=== PATIENT | male | born 1945 | race Caucasian/White ===

== ENCOUNTER 2017-09-22 09:27 | Emergency (ER) | payer MEDICARE, BC ==
[2017-09-22] MEDS: ADACEL/BOOSTRIX VACCINE (DIPHTH/PERTUSS/ACELL/TETANUS)0.5ML SYR (90715) IM (09:56)
== END 2017-09-22 12:44 | disposition home or self-care (01) ==
LOC: M ED 09:27
DX: S50.01XA Contusion of right elbow, initial encounter (principal); S60.211A Contusion of right wrist, initial encounter; S80.01XA Contusion of right knee, initial encounter; S80.02XA Contusion of left knee, initial encounter; W01.0XXA Fall on same level from slipping, tripping and stumbling without subsequent striking against object, initial encounter; Y92.099 Unspecified place in other non-institutional residence as the place of occurrence of the external cause; Y93.9 Activity, unspecified; Y99.9 Unspecified external cause status; M10.9 Gout, unspecified; Z79.899 Other long term (current) drug therapy
CPT/HCPCS: 90715

== ENCOUNTER → 2017-10-12 | Outpatient (REF) | payer MEDICARE, BC ==
[2017-10-12 15:53] LABS: ANION GAP 9 MEQ/L (8-16); BLOOD UREA NITROGEN 19 MG/DL (7-18); CALCIUM LEVEL 9.2 MG/DL (8.8-10.2); CARBON DIOXIDE LEVEL 26 MEQ/L (21-32); CHLORIDE LEVEL 106 MEQ/L (98-107); CPK CREATINE PHOSPHOKINASE 108 U/L (39-308); CREATININE FOR GFR 0.95 MG/DL (0.70-1.30); GLOMERULAR FILTRATION RATE > 60.0 (>42); GLUCOSE, FASTING 204 MG/DL (70-100); POTASSIUM SERUM 4.1 MEQ/L (3.5-5.1); SODIUM LEVEL 141 MEQ/L (136-145)
== END ==
LOC: M SFHCPLAZ 12:59
DX: M62.81 Muscle weakness (generalized) (principal)
CPT/HCPCS: 82550

== ENCOUNTER → 2018-04-14 | Outpatient (REF) | payer MEDICARE, BC ==
[~2018-04-14] MED LIST: ATOR1TAB21; CLON0.5T8; DULO1CAP3; LISI-542; METF500T13 PO; METF500T4; OLAN10TA2; ZYLO300T6
[2018-04-14 12:21] LABS: ALBUMIN 4.3 GM/DL (3.2-5.2); ALT/SGPT 52 U/L (12-78); BILIRUBIN,TOTAL 0.7 MG/DL (0.2-1.0); BLOOD UREA NITROGEN 16 MG/DL (7-18); CALCIUM LEVEL 9.7 MG/DL (8.8-10.2); CARBON DIOXIDE LEVEL 24 MEQ/L (21-32); CHLORIDE LEVEL 105 MEQ/L (98-107); CHOLESTEROL LEVEL 128 MG/DL (<200); CHOLESTEROL RISK RATIO 4.923 (<5); CREATININE FOR GFR 0.93 MG/DL (0.70-1.30); GLOMERULAR FILTRATION RATE > 60.0 (>42); GLUCOSE, FASTING 183 MG/DL (70-100); HDL CHOLESTEROL 26 MG/DL (>40); LDL CHOLESTEROL 45 MG/DL (<100); NON-HDL-C 102 MG/DL; POTASSIUM SERUM 4.4 MEQ/L (3.5-5.1); SODIUM LEVEL 137 MEQ/L (136-145); TOTAL PROTEIN 7.5 GM/DL (6.4-8.2); TRIGLYCERIDES LEVEL 284 MG/DL (<150)
[2018-04-14 13:34] LABS: HEMOGLOBIN A1c 8.3 %
[2018-04-14 13:53] LABS: MALB URINE SIEMENS 22.9 MG/L
== END ==
LOC: M SFHCPLAZ 10:41
PROVIDERS: ATTEND Nurse Practitioner Adult Health
DX: E11.9 Type 2 diabetes mellitus without complications (principal)

== ENCOUNTER → 2018-10-14 | Outpatient (CLI) | payer MEDICARE, BC ==
[~2018-10-14] MED LIST changes: -DULO1CAP3; +DULO1CAP6
--- NOTE | 2018-10-14 14:19 | REP ---
Bilateral lower extremity arterial Doppler ultrasound: History: Atherosclerosis of the [place] lower extremity arteries. Claudication. Findings: Ankle brachial indices are normal measured at 1.07 on the right and 1.13 on the left. Mild plaquing is visible diffusely. Essentially normal arterial Doppler waveforms are seen. No focal significant stenosis seen. Right lower extremity arterial Doppler velocity chart: CF A 132 cm/S Profunda 192 Proximal SFA 155 Mid SFA 100 Distal SFA 97 Popliteal 86 Proximal AT A 68 Tibioperoneal trunk 107 By optimal INTERACTIVE ART DIRECTOR 85 Distal INTERACTIVE ART DIRECTOR 120 Distal AT A 84 Left lower extremity arterial Doppler velocity chart: CF A 133 cm/S Profunda 96 Proximal SFA 104 Mid SFA 84 Distal SFA 105 Popliteal 120 Proximal AT A 58 Tibioperoneal trunk 81 Proximal INTERACTIVE ART DIRECTOR 56 Distal INTERACTIVE ART DIRECTOR 89 Distal AT A 128 Electronically Signed by Brayan Caballero MD 10/14/2018 02:10 P
== END ==
LOC: M RAD 12:39
PROVIDERS: ATTEND Surgery Vascular Surgery
DX: I70.213 Atherosclerosis of native arteries of extremities with intermittent claudication, bilateral legs (principal)

== ENCOUNTER → 2018-12-27 | Outpatient (REF) | payer MEDICARE, BC ==
[~2018-12-27] MED LIST changes: +METF-791; -METF500T4
[2018-12-27 12:49] LABS: ALBUMIN 3.8 GM/DL (3.2-5.2); ALT/SGPT 34 U/L (12-78); BILIRUBIN,TOTAL 0.9 MG/DL (0.2-1.0); BLOOD UREA NITROGEN 15 MG/DL (7-18); CALCIUM LEVEL 9.4 MG/DL (8.8-10.2); CARBON DIOXIDE LEVEL 28 MEQ/L (21-32); CHLORIDE LEVEL 105 MEQ/L (98-107); CREATININE FOR GFR 1.08 MG/DL (0.70-1.30); GLOMERULAR FILTRATION RATE > 60.0 (>42); GLUCOSE, FASTING 247 MG/DL (70-100); POTASSIUM SERUM 4.1 MEQ/L (3.5-5.1); SODIUM LEVEL 140 MEQ/L (136-145); TOTAL PROTEIN 7.3 GM/DL (6.4-8.2)
[2018-12-27 13:18] LABS: HEMOGLOBIN A1c 7.3 %
== END ==
LOC: M SFHCPLAZ 09:28
PROVIDERS: ATTEND Nurse Practitioner Adult Health
DX: E11.9 Type 2 diabetes mellitus without complications (principal)
CPT/HCPCS: 36415; 80053; 83036; 90682; G0008; G0463

== ENCOUNTER → 2019-08-15 | Outpatient (REF) | payer MEDICARE, BC ==
[~2019-08-15] MED LIST changes: +CLON0.5T2; -CLON0.5T8; -LISI-542; +LISI-898; -METF-791; +METF-838
[2019-08-15 18:13] LABS: BLOOD UREA NITROGEN 23 MG/DL (7-18); CALCIUM LEVEL 9.4 MG/DL (8.8-10.2); CARBON DIOXIDE LEVEL 25 MEQ/L (21-32); CHLORIDE LEVEL 104 MEQ/L (98-107); CREATININE FOR GFR 1.03 MG/DL (0.70-1.30); GLOMERULAR FILTRATION RATE > 60.0 (>42); GLUCOSE, FASTING 249 MG/DL (70-100); POTASSIUM SERUM 4.2 MEQ/L (3.5-5.1); SODIUM LEVEL 138 MEQ/L (136-145)
== END ==
LOC: M SFHCPLAZ 14:31
PROVIDERS: ATTEND Family Medicine
DX: R60.9 Edema, unspecified (principal)
CPT/HCPCS: 36415; 80048; G0463

== ENCOUNTER → 2020-01-18 | Outpatient (REF) | payer MEDICARE, BC ==
[~2020-01-18] MED LIST changes: +LISI-542; -LISI-898
[2020-01-18 14:25] LABS: ALT/SGPT 44 U/L (12-78); BILIRUBIN,TOTAL 0.8 MG/DL (0.2-1.0); BLOOD UREA NITROGEN 22 MG/DL (7-18); CALCIUM LEVEL 9.3 MG/DL (8.8-10.2); CARBON DIOXIDE LEVEL 27 MEQ/L (21-32); CHLORIDE LEVEL 103 MEQ/L (98-107); CHOLESTEROL LEVEL 146 MG/DL (<200); CHOLESTEROL RISK RATIO 4.424 (<5); CREATININE FOR GFR 1.09 MG/DL (0.70-1.30); GLOMERULAR FILTRATION RATE > 60.0 (>42); GLUCOSE, FASTING 241 MG/DL (70-100); HDL CHOLESTEROL 33 MG/DL (>40); NON-HDL-C 113 MG/DL; POTASSIUM SERUM 4.9 MEQ/L (3.5-5.1); SODIUM LEVEL 135 MEQ/L (136-145); TOTAL PROTEIN 7.6 GM/DL (6.4-8.2); TRIGLYCERIDES LEVEL 400 MG/DL (<150)
[2020-01-18 14:30] LABS: CREATININE, URINE 91.8 MG/DL; HEMOGLOBIN A1c 8.2 %; MALB URINE SIEMENS 14.2 MG/L; MAU/CREAT RATIO 15.4 MCG/MG (0.0-30.0)
== END ==
LOC: M SFHCPLAZ 10:49
PROVIDERS: ATTEND Nurse Practitioner Adult Health
DX: E78.5 Hyperlipidemia, unspecified (principal); E11.9 Type 2 diabetes mellitus without complications

== ENCOUNTER → 2020-06-27 | Outpatient (CLI) | payer MEDICARE, BC ==
[~2020-06-27] MED LIST changes: -LISI-542; +LISI-898
--- NOTE | 2020-06-27 14:51 | REPPI ---
INDICATION: LUMBAR REGION. COMPARISON: None. TECHNIQUE: There are 6 views. FINDINGS: Vertebral body heights, interspacing and alignment are normal. There are small osteophytes anteriorly at every vertebral body compatible with mild multilevel degenerative disc disease. There is grade 1 retrolisthesis of L2 on L3, likely degenerative. There is no spondylolysis or spondylolisthesis. The pedicles and facets are unremarkable. The sacroiliac articulations are unremarkable. IMPRESSION: Mild multilevel degenerative disc disease. Degenerative grade 1 retrolisthesis of L2 on L3. If there are radicular symptoms consider MRI follow-up. <Electronically signed by Daniel Quesada > 06/27/20 [id number]
== END ==
LOC: M PLAIMG 14:20
PROVIDERS: ATTEND Nurse Practitioner Adult Health
DX: M51.36 Other intervertebral disc degeneration, lumbar region (principal); M25.78 Osteophyte, vertebrae; M54.5 Low back pain
CPT/HCPCS: 72110; G0463

== ENCOUNTER → 2020-07-17 | Outpatient (REF) | payer MEDICARE, BC ==
[2020-07-17 14:22] LABS: HEMOGLOBIN A1c 12.4 %
[2020-07-17 14:28] LABS: CREATININE, URINE 67.9 MG/DL; MALB URINE SIEMENS 62.4 MG/L; MAU/CREAT RATIO 91.8 MCG/MG (0.0-30.0)
[2020-07-17 14:37] LABS: ALT/SGPT 32 U/L (12-78); BLOOD UREA NITROGEN 9 MG/DL (7-18); CALCIUM LEVEL 9.3 MG/DL (8.8-10.2); CARBON DIOXIDE LEVEL 27 MEQ/L (21-32); CHLORIDE LEVEL 104 MEQ/L (98-107); CHOLESTEROL LEVEL 138 MG/DL (<200); CHOLESTEROL RISK RATIO 4.181 (<5); CREATININE FOR GFR 0.91 MG/DL (0.70-1.30); GLOMERULAR FILTRATION RATE > 60.0 (>42); GLUCOSE, FASTING 261 MG/DL (70-100); HDL CHOLESTEROL 33 MG/DL (>40); NON-HDL-C 105 MG/DL; POTASSIUM SERUM 4.6 MEQ/L (3.5-5.1); SODIUM LEVEL 138 MEQ/L (136-145); TRIGLYCERIDES LEVEL 332 MG/DL (<150)
[2020-07-17 14:38] LABS: ALBUMIN 3.8 GM/DL (3.2-5.2); LDL CHOLESTEROL 39 MG/DL (<100); TOTAL PROTEIN 7.3 GM/DL (6.4-8.2); URIC ACID 3.7 MG/DL (3.5-7.2)
== END ==
LOC: M SFHCPLAZ 11:24
PROVIDERS: ATTEND Nurse Practitioner Adult Health
DX: E78.5 Hyperlipidemia, unspecified (principal); E11.9 Type 2 diabetes mellitus without complications; M1A.0790 Idiopathic chronic gout, unspecified ankle and foot, without tophus (tophi)
CPT/HCPCS: 36415; 80053; 80061; 82043; 83036; 84550; G0463

== ENCOUNTER → 2020-08-03 | Outpatient (CLI) | payer MEDICARE, BC ==
--- NOTE | 2020-08-03 16:12 | REPVR ---
PROCEDURE INFORMATION: Exam: MR Lumbar Spine Without Contrast Exam date and time: 08/03/2020 2:32 PM Age: 75 years old Clinical indication: Low back pain; Additional info: Lumbar pain TECHNIQUE: Imaging protocol: Multiplanar magnetic resonance images of the lumbar spine without intravenous contrast. COMPARISON: CR SPINE LS COMPLETE 06/27/2020 2:43 PM FINDINGS: Vertebrae: Unremarkable. Spinal cord: Normal signal. No cord compression. L1-L2: No significant disc disease. No significant spinal canal stenosis. No neural foraminal stenosis. L2-L3: There is disc desiccation. There is facet arthropathy and ligamentum flavum hypertrophy. L3-L4: There is disc desiccation. There is mild disc bulging. There is facet arthropathy and ligamentum flavum hypertrophy. There is mild spinal canal stenosis. L4-L5: There is disc desiccation. There is mild disc bulging. Disc bulging extends into both neural foramen causing mild bilateral neural foraminal narrowing. There is facet arthropathy and ligamentum flavum hypertrophy. There is mild spinal canal stenosis. L5-S1: There is disc desiccation. There is a moderate disc bulge with a small superimposed central disc herniation. There is facet arthropathy and ligamentum flavum hypertrophy. Soft tissues: Unremarkable. IMPRESSION: Mild multilevel degenerative changes causing variable degrees of spinal canal and neuroforaminal narrowing as described above. Electronically signed by: Leo Cam On 08/03/2020 16:11:50 PM
== END ==
LOC: M RAD 14:28
PROVIDERS: ATTEND Nurse Practitioner Adult Health
DX: M54.5 Low back pain (principal)

== ENCOUNTER → 2020-09-18 | Outpatient (REF) | payer MEDICARE, BC ==
[~2020-09-18] MED LIST changes: -OLAN10TA2; +OLAN1TAB20
[2020-09-18 16:46] LABS: HEMOGLOBIN A1c 9.1 %
[2020-09-18 17:00] LABS: ALBUMIN 4.2 GM/DL (3.2-5.2); ALT/SGPT 37 U/L (12-78); BLOOD UREA NITROGEN 12 MG/DL (7-18); CALCIUM LEVEL 9.1 MG/DL (8.8-10.2); CARBON DIOXIDE LEVEL 28 MEQ/L (21-32); CHLORIDE LEVEL 103 MEQ/L (98-107); CREATININE FOR GFR 0.82 MG/DL (0.70-1.30); GLOMERULAR FILTRATION RATE > 60.0 (>42); GLUCOSE, FASTING 145 MG/DL (70-100); POTASSIUM SERUM 4.4 MEQ/L (3.5-5.1); SODIUM LEVEL 137 MEQ/L (136-145); TOTAL PROTEIN 7.6 GM/DL (6.4-8.2)
== END ==
LOC: M SFHCPLAZ 14:20
PROVIDERS: ATTEND Nurse Practitioner Adult Health
DX: E11.9 Type 2 diabetes mellitus without complications (principal)
CPT/HCPCS: 36415; 80053; 83036; G0463

== ENCOUNTER → 2020-12-19 | Outpatient (CLI) | payer MEDICARE, BC ==
[~2020-12-19] MED LIST changes: +E-Z-GAS II EFFERVESCENT PACKET (SODIUM BICARB./CITRIC ACID/SIMETHICONE) As Ordered ONE; +E-Z-HD 98% w/w 340GM SUSP BTL As Ordered ONE; +E-Z-PAQUE 96% w/w SUSP 176GM BTL As Ordered ONE
--- NOTE | 2020-12-19 16:31 | REP ---
INDICATION: R13.10 DYSPHAGIA. COMPARISON: None. TECHNIQUE: This procedure was performed under the direct supervision of Dr. Caballero. Images were reviewed with Dr. Caballero. Liquid barium and gas producing granules were given in the erect position as well as liquid barium in the prone oblique positions in order to perform a double contrast esophagram examination. A combination of fluoroscopy, spot films and last image hold technology was utilized. 0.7 minutes of fluoro time was utilized for this procedure. FINDINGS: A single view PA chest x-ray is submitted as a associate professor of physics film. The superior mediastinal structures are midline. The patient is status post median sternotomy. The right costophrenic angle is not visualized. The heart size is within normal limits. The visualized portion of the lungs are clear. The oral and pharyngeal stages of deglutition are unremarkable. During esophageal transport there are tertiary waves demonstrated. There is no esophagitis, stricture, mucosal ring, or hiatal hernia.Gastroesophageal reflux is not demonstrated on this examination. IMPRESSION: Tertiary waves. Otherwise, unremarkable double-contrast esophagram examination <Electronically signed by Saji Mcdonald > 12/19/20 1607 <Electronically signed by Anshu Caballero > 12/19/20 1620
== END ==
LOC: M RAD 10:41
PROVIDERS: ATTEND Physician Assistant Medical
DX: R13.10 Dysphagia, unspecified (principal)

== ENCOUNTER → 2020-12-23 | Outpatient (CLI) | payer MEDICARE, BC ==
[~2020-12-23] MED LIST changes: +BARIUM SULFATE 700 MG TABLET (E-Z-DISK) As Ordered ONE; -E-Z-GAS II EFFERVESCENT PACKET (SODIUM BICARB./CITRIC ACID/SIMETHICONE) As Ordered ONE; -E-Z-HD 98% w/w 340GM SUSP BTL As Ordered ONE; +VARIBAR NECTAR 40% w/v 240ML SUSP BTL As Ordered ONE; +VARIBAR PUDDING 40% w/v 230ML TUBE As Ordered ONE
--- NOTE | 2020-12-23 13:09 | REP ---
INDICATION: DYSPHAGIA. COMPARISON: None. TECHNIQUE: The procedure was performed by Odessa Lobo [facility], under the direct supervision of Dr. Caballero. The procedure was performed with Jane Crane from speech pathology present. 5 ml aliquots of thin, pudding, mixed fruit, soft food, hard food and pill consistency barium was administered. FINDINGS: Flash penetration was visualized with thin consistency barium. The detailed report of this examination will be provided by speech pathology. IMPRESSION: Flash penetration was visualized with thin consistency barium, a detailed report will be provided by speech pathology. 2.3 minutes of fluoroscopy time was utilized for this procedure. Some fluoroscopic images are performed with last image hold technology. These images require no additional radiation <Electronically signed by Odessa Lobo > 12/23/20 1245 <Electronically signed by Anshu Caballero > 12/23/20 [id number]
== END ==
LOC: M RAD 11:08
PROVIDERS: ATTEND Physician Assistant Medical
DX: R13.10 Dysphagia, unspecified (principal)

== ENCOUNTER → 2021-01-14 | Outpatient (CLI) | payer MEDICARE, BC ==
[~2021-01-14] MED LIST changes: -BARIUM SULFATE 700 MG TABLET (E-Z-DISK) As Ordered ONE; -E-Z-PAQUE 96% w/w SUSP 176GM BTL As Ordered ONE; -VARIBAR NECTAR 40% w/v 240ML SUSP BTL As Ordered ONE; -VARIBAR PUDDING 40% w/v 230ML TUBE As Ordered ONE
[2021-01-14 18:16] LABS: CREATININE, URINE 55.9 MG/DL; MAU/CREAT RATIO 17.8 MCG/MG (0.0-30.0)
[2021-01-14 18:18] LABS: ALBUMIN 3.8 GM/DL (3.2-5.2); ALT/SGPT 25 U/L (12-78); BILIRUBIN,TOTAL 0.9 MG/DL (0.2-1.0); BLOOD UREA NITROGEN 22 MG/DL (7-18); CALCIUM LEVEL 9.1 MG/DL (8.8-10.2); CARBON DIOXIDE LEVEL 27 MEQ/L (21-32); CHLORIDE LEVEL 105 MEQ/L (98-107); CHOLESTEROL LEVEL 111 MG/DL (<200); CHOLESTEROL RISK RATIO 3.964 (<5); CREATININE FOR GFR 0.97 MG/DL (0.70-1.30); GLOMERULAR FILTRATION RATE > 60.0 (>42); GLUCOSE, FASTING 141 MG/DL (70-100); HDL CHOLESTEROL 28 MG/DL (>40); LDL CHOLESTEROL 29 MG/DL (<100); NON-HDL-C 83 MG/DL; POTASSIUM SERUM 4.4 MEQ/L (3.5-5.1); SODIUM LEVEL 139 MEQ/L (136-145); TOTAL PROTEIN 7.3 GM/DL (6.4-8.2); TRIGLYCERIDES LEVEL 272 MG/DL (<150)
[2021-01-14 18:30] LABS: HEMOGLOBIN A1c 7.1 %
== END ==
LOC: M PLALAB 14:38
PROVIDERS: ATTEND Nurse Practitioner Adult Health
DX: E11.9 Type 2 diabetes mellitus without complications (principal)
CPT/HCPCS: 36415; 80053; 80061; 82043; 83036; G0463

== ENCOUNTER → 2021-05-14 | Outpatient (CLI) | payer MEDICARE, BC ==
[~2021-05-14] MED LIST changes: -LISI-898; +LISI5TAB11
[2021-05-14 17:36] LABS: HEMOGLOBIN A1c 8.3 %
[2021-05-14 17:41] LABS: ALBUMIN 4.3 GM/DL (3.2-5.2); ALT/SGPT 46 U/L (12-78); BILIRUBIN,TOTAL 0.8 MG/DL (0.2-1.0); BLOOD UREA NITROGEN 24 MG/DL (7-18); CARBON DIOXIDE LEVEL 26 MEQ/L (21-32); CHLORIDE LEVEL 103 MEQ/L (98-107); CHOLESTEROL LEVEL 157 MG/DL (<200); CHOLESTEROL RISK RATIO 5.064 (<5); GLOMERULAR FILTRATION RATE > 60.0 (>42); GLUCOSE, FASTING 185 MG/DL (70-100); HDL CHOLESTEROL 31 MG/DL (>40); MAGNESIUM LEVEL 2.1 MG/DL (1.8-2.4); NON-HDL-C 126 MG/DL; POTASSIUM SERUM 4.9 MEQ/L (3.5-5.1); SODIUM LEVEL 138 MEQ/L (136-145); TOTAL PROTEIN 7.7 GM/DL (6.4-8.2); TRIGLYCERIDES LEVEL 405 MG/DL (<150); URIC ACID 5.3 MG/DL (3.5-7.2)
== END ==
LOC: M PLALAB 14:54
PROVIDERS: ATTEND Nurse Practitioner Adult Health
DX: M1A.0790 Idiopathic chronic gout, unspecified ankle and foot, without tophus (tophi) (principal); E11.9 Type 2 diabetes mellitus without complications; M62.81 Muscle weakness (generalized)

== ENCOUNTER → 2021-05-21 | Outpatient (CLI) | payer MEDICARE, BC | LOC: M SOG 08:21 | PROVIDERS: ATTEND Orthopaedic Surgery Adult Reconstructive Orthopaedic Surgery | DX: M17.0 Bilateral primary osteoarthritis of knee (principal); M54.17 Radiculopathy, lumbosacral region; M51.37 Other intervertebral disc degeneration, lumbosacral region; M46.97 Unspecified inflammatory spondylopathy, lumbosacral region ==

== ENCOUNTER → 2021-06-11 | Outpatient (REF) | payer MEDICARE, BC ==
[2021-06-11 18:04] LABS: AMORPHOUS SEDIMENT SMALL (NEGATIVE); APPEARANCE, URINE HAZY (CLEAR); BACTERIA, URINE AUTO NEGATIVE (NEGATIVE); BILIRUBIN, URINE AUTO NEGATIVE (NEGATIVE); BLOOD, URINE BLOOD NEGATIVE (NEGATIVE); COLOR, URINE YELLOW (YELLOW); GLUCOSE, URINE (UA) AUTO 2+ mg/dL (NEGATIVE); KETONE, URINE AUTO TRACE mg/dL (NEGATIVE); LEUKOCYTE ESTERASE, URINE AUTO NEGATIVE (NEGATIVE); MUCUS, URINE SMALL (NEGATIVE); NITRITE, URINE AUTO NEGATIVE (NEGATIVE); PROTEIN, URINE AUTO NEGATIVE (NEGATIVE); RBC, URINE AUTO 0 /HPF (0-3); SPECIFIC GRAVITY URINE AUTO 1.019 (1.002-1.035); SQUAMOUS EPITHELIAL CELL UR AU 0 /HPF (0-6); UROBILINOGEN, URINE AUTO 0.2 mg/dL (0.0-2.0); WBC, URINE AUTO 1 /HPF (0-3)
== END ==
LOC: M SMT 16:56
PROVIDERS: ATTEND Urology
DX: N40.1 Benign prostatic hyperplasia with lower urinary tract symptoms (principal)

== ENCOUNTER → 2021-06-18 | Outpatient (CLI) | payer MEDICARE, BC ==
[2021-06-20 23:07] LABS: PSA TOTAL 0.6 ng/mL (0.0-4.0)
== END ==
LOC: M PLALAB 13:59 → M LAB 13:59
PROVIDERS: ATTEND Urology
DX: N40.1 Benign prostatic hyperplasia with lower urinary tract symptoms (principal)

== ENCOUNTER 2021-07-03 11:34 | Emergency (ER) | payer MEDICARE, BC ==
[~2021-07-03] VITALS: Ht 188 cm; Wt 105.5 kg
[2021-07-03] MEDS ORDERED: ALLO300T2 (11:48)
[2021-07-03] MEDS ORDERED: OLAN2.5T25 (11:48)
[2021-07-03] MEDS ORDERED: LISI10TA22 (11:48)
[2021-07-03] MEDS ORDERED: OXYB5TAB10 (11:48)
[2021-07-03] MEDS ORDERED: TAMS1CAP17 (11:48)
[2021-07-03] MEDS ORDERED: ATOR40TA75 (11:48)
[2021-07-03] MEDS ORDERED: FINA5TAB2 (11:48)
[2021-07-03] MEDS ORDERED: GABA-282 (11:48)
[2021-07-03 14:03] VITALS: BP 161/72
== END 2021-07-03 14:04 | disposition home or self-care (01) ==
LOC: M ED 11:34
DX: S80.11XA Contusion of right lower leg, initial encounter (principal); R22.41 Localized swelling, mass and lump, right lower limb; W01.0XXA Fall on same level from slipping, tripping and stumbling without subsequent striking against object, initial encounter; Y92.009 Unspecified place in unspecified non-institutional (private) residence as the place of occurrence of the external cause; Y93.9 Activity, unspecified; Y99.9 Unspecified external cause status; I25.10 Atherosclerotic heart disease of native coronary artery without angina pectoris; E11.9 Type 2 diabetes mellitus without complications; Z79.84 Long term (current) use of oral hypoglycemic drugs; Z79.899 Other long term (current) drug therapy

== ENCOUNTER → 2021-09-19 | Outpatient (CLI) | payer MEDICARE, BC ==
[~2021-09-19] MED LIST changes: +ALLO300T2; +ATOR40TA75; +FINA5TAB2; +GABA-282; +LISI10TA22; +OLAN2.5T25; +OXYB5TAB10; +TAMS1CAP17
[2021-09-19 15:55] LABS: HEMOGLOBIN A1c 7.2 %
[2021-09-19 16:13] LABS: ALBUMIN 4.1 GM/DL (3.2-5.2); ALT/SGPT 31 U/L (12-78); BILIRUBIN,TOTAL 0.9 MG/DL (0.2-1.0); BLOOD UREA NITROGEN 16 MG/DL (7-18); CARBON DIOXIDE LEVEL 26 MEQ/L (21-32); CHLORIDE LEVEL 110 MEQ/L (98-107); CREATININE FOR GFR 0.87 MG/DL (0.70-1.30); GLOMERULAR FILTRATION RATE > 60.0 (>42); GLUCOSE, FASTING 133 MG/DL (70-100); POTASSIUM SERUM 4.5 MEQ/L (3.5-5.1); SODIUM LEVEL 143 MEQ/L (136-145); TOTAL PROTEIN 7.4 GM/DL (6.4-8.2)
== END ==
LOC: M PLALAB 13:30
PROVIDERS: ATTEND Nurse Practitioner Adult Health
DX: E11.9 Type 2 diabetes mellitus without complications (principal)

== ENCOUNTER 2021-11-12 12:34 | Emergency (ER) | payer MEDICARE, BC ==
[~2021-11-12] VITALS: Ht 188 cm; Wt 102.4 kg
[2021-11-12 14:09] LABS: HEMATOCRIT 34.4 % (42.0-52.0); HEMOGLOBIN 10.9 g/dl (13.5-17.5); MEAN CORPUSCULAR HEMOGLOBIN 26.8 pg (27.0-33.0); MEAN CORPUSCULAR HGB CONC 31.7 g/dl (32.0-36.5); MEAN CORPUSCULAR VOLUME 84.5 fl (80.0-96.0); PLATELET COUNT, AUTOMATED 150 10^3/uL (150-450); RED BLOOD COUNT 4.07 10^6/uL (4.30-6.10); WHITE BLOOD COUNT 9.3 10^3/uL (4.0-10.0)
[2021-11-12 14:34] LABS: ATYPICAL LYMPH 4 % (0-5); BASOPHILS 2 % (0-1); LYMPHOCYTES 13 % (16-44); MONOCYTES 11 % (0-5); MYELOCYTES 2 % (0-0); NEUTROPHILS 67 % (28-66)
[2021-11-12 14:35] LABS: PLATELET ESTIMATE NORMAL (NORMAL)
[2021-11-12 14:36] LABS: HYPOCHROMASIA 1+; POIKILOCYTOSIS 1+; TEAR DROP CELLS 1+
[2021-11-12 14:41] LABS: ALBUMIN 4.2 GM/DL (3.2-5.2); ALT/SGPT 31 U/L (12-78); BILIRUBIN,DIRECT 0.2 MG/DL (0.0-0.2); BILIRUBIN,TOTAL 1.1 MG/DL (0.2-1.0); BLOOD UREA NITROGEN 20 MG/DL (7-18); CALCIUM LEVEL 10.1 MG/DL (8.8-10.2); CARBON DIOXIDE LEVEL 22 MEQ/L (21-32); CHLORIDE LEVEL 107 MEQ/L (98-107); CREATININE FOR GFR 0.81 MG/DL (0.70-1.30); GLOMERULAR FILTRATION RATE > 60.0 (>42); GLUCOSE, FASTING 116 MG/DL (70-100); POTASSIUM SERUM 3.8 MEQ/L (3.5-5.1); SODIUM LEVEL 137 MEQ/L (136-145); TOTAL PROTEIN 7.7 GM/DL (6.4-8.2)
[2021-11-12 15:12] LABS: FREE T4 1.08 NG/DL (0.76-1.46); MAGNESIUM LEVEL 1.9 MG/DL (1.8-2.4)
[2021-11-12 16:16] VITALS: BP 168/84
== END 2021-11-12 16:18 | disposition home or self-care (01) ==
LOC: M ED 12:34
DX: I10 Essential (primary) hypertension (principal); I44.0 Atrioventricular block, first degree; R00.1 Bradycardia, unspecified; E11.9 Type 2 diabetes mellitus without complications; E78.5 Hyperlipidemia, unspecified; F41.9 Anxiety disorder, unspecified; F33.1 Major depressive disorder, recurrent, moderate; Z87.891 Personal history of nicotine dependence; Z79.811 Long term (current) use of aromatase inhibitors; Z79.899 Other long term (current) drug therapy; Z79.4 Long term (current) use of insulin
CPT/HCPCS: 36415; 70450; 71045; 80053; 82248; 83735; 84439; 84443; 85025; 90834; 93005; 99284; G0463

== ENCOUNTER → 2021-12-04 | Outpatient (REF) | payer MEDICARE, BC | LOC: M SFHCDERM 17:20 | PROVIDERS: ATTEND Nurse Practitioner Family | DX: C44.41 Basal cell carcinoma of skin of scalp and neck (principal) ==

== ENCOUNTER → 2022-03-04 | Outpatient (CLI) | payer MEDICARE, BC ==
[2022-03-04 14:34] LABS: MAGNESIUM LEVEL 1.6 MG/DL (1.8-2.4); URIC ACID 5.9 MG/DL (3.7-9.2)
[2022-03-04 14:37] LABS: ALKALINE PHOSPHATASE 122 U/L (46-116); ALT/SGPT 32 U/L (7.0-40); AST/SGOT 32 U/L (<34); BILIRUBIN,TOTAL 0.9 MG/DL (0.3-1.2); BLOOD UREA NITROGEN 26 MG/DL (9-23); CALCIUM LEVEL 9.5 MG/DL (8.3-10.6); CARBON DIOXIDE LEVEL 25 MMOL/L (20-31); CHLORIDE LEVEL 102 MMOL/L (98-107); CHOLESTEROL LEVEL 119 MG/DL (<200); CHOLESTEROL RISK RATIO 3.91 (<5); CREATININE FOR GFR 0.77 MG/DL (0.70-1.30); GLOMERULAR FILTRATION RATE > 60.0 (>42); GLUCOSE, FASTING 219 MG/DL (74-106); HDL CHOLESTEROL 30.4 MG/DL (>40); LDL CHOLESTEROL 29.6 MG/DL (<100); NON-HDL-C 89 MG/DL; POTASSIUM SERUM 4.3 MMOL/L (3.5-5.1); SODIUM LEVEL 137 MMOL/L (136-145); TOTAL PROTEIN 6.9 G/DL (5.7-8.2); TRIGLYCERIDES LEVEL 295 MG/DL (<150)
[2022-03-04 14:46] LABS: HEMOGLOBIN A1c 9.6 % (4.0-6.0)
== END ==
LOC: M PLALAB 09:49
PROVIDERS: ATTEND Nurse Practitioner Adult Health
DX: E11.9 Type 2 diabetes mellitus without complications (principal); M62.81 Muscle weakness (generalized); M1A.0790 Idiopathic chronic gout, unspecified ankle and foot, without tophus (tophi)

== ENCOUNTER → 2022-06-09 | Outpatient (CLI) | payer MEDICARE, BC, OTHER ==
[2022-06-09 15:51] LABS: HEMOGLOBIN A1c 9.6 % (4.0-6.0)
[2022-06-09 16:00] LABS: CREATININE, URINE 73.3 MG/DL; MAU/CREAT RATIO 129.6 MCG/MG (0.0-30.0)
[2022-06-09 16:02] LABS: URIC ACID 7.2 MG/DL (3.7-9.2)
[2022-06-09 16:09] LABS: ALBUMIN 4.3 G/DL (3.2-5.2); ALKALINE PHOSPHATASE 117 U/L (46-116); ALT/SGPT 30 U/L (7.0-40); AST/SGOT 34 U/L (<34); BLOOD UREA NITROGEN 29 MG/DL (9-23); CALCIUM LEVEL 9.6 MG/DL (8.3-10.6); CARBON DIOXIDE LEVEL 25 MMOL/L (20-31); CHLORIDE LEVEL 101 MMOL/L (98-107); CREATININE FOR GFR 0.78 MG/DL (0.70-1.30); GLOMERULAR FILTRATION RATE > 60.0 (>42); GLUCOSE, FASTING 229 MG/DL (74-106); POTASSIUM SERUM 4.2 MMOL/L (3.5-5.1); SODIUM LEVEL 137 MMOL/L (136-145); TOTAL PROTEIN 7.1 G/DL (5.7-8.2)
== END ==
LOC: M PLALAB 14:30
PROVIDERS: ATTEND Nurse Practitioner Adult Health
DX: M1A.0790 Idiopathic chronic gout, unspecified ankle and foot, without tophus (tophi) (principal); E11.9 Type 2 diabetes mellitus without complications; I10 Essential (primary) hypertension

== ENCOUNTER → 2022-06-17 | Outpatient (REF) | payer MEDICARE, BC, OTHER ==
[2022-06-17 16:02] LABS: APPEARANCE, URINE CLEAR (CLEAR); BACTERIA, URINE AUTO NEGATIVE (NEGATIVE); BILIRUBIN, URINE AUTO NEGATIVE (NEGATIVE); BLOOD, URINE BLOOD NEGATIVE (NEGATIVE); COLOR, URINE YELLOW (YELLOW); GLUCOSE, URINE (UA) AUTO 3+ mg/dL (NEGATIVE); KETONE, URINE AUTO NEGATIVE (NEGATIVE); LEUKOCYTE ESTERASE, URINE AUTO NEGATIVE (NEGATIVE); NITRITE, URINE AUTO NEGATIVE (NEGATIVE); PROTEIN, URINE AUTO NEGATIVE (NEGATIVE); RBC, URINE AUTO 0 /HPF (0-3); SPECIFIC GRAVITY URINE AUTO 1.009 (1.002-1.035); SQUAMOUS EPITHELIAL CELL UR AU 0 /HPF (0-6); UROBILINOGEN, URINE AUTO 0.2 mg/dL (0.0-2.0); WBC, URINE AUTO 0 /HPF (0-3)
== END ==
LOC: M SMT 13:19
PROVIDERS: ATTEND Urology
DX: R35.0 Frequency of micturition (principal)

== ENCOUNTER → 2022-08-11 | Outpatient (REF) | payer MEDICARE, BC | LOC: M SFHCDERM 18:08 | PROVIDERS: ATTEND Nurse Practitioner Family | DX: C44.619 Basal cell carcinoma of skin of left upper limb, including shoulder (principal); L57.0 Actinic keratosis ==

== ENCOUNTER → 2022-08-21 | Outpatient (CLI) | payer MEDICARE, BC | LOC: M SOG 07:55 | PROVIDERS: ATTEND Orthopaedic Surgery | DX: M17.0 Bilateral primary osteoarthritis of knee (principal) ==

== ENCOUNTER 2022-09-26 15:06 | Inpatient (IN) | payer MEDICARE, BC ==
[~2022-09-26] VITALS: Ht 188 cm; Wt 107.9 kg
[~2022-09-26 15:06] MED LIST changes: -ALLO300T2; +ALLO300T2 PO; -ATOR40TA75; +ATOR40TA75 PO; -CLON0.5T2; +CLON0.5T2 PO; -DULO1CAP6; +DULO1CAP6 PO; -FINA5TAB2; +FINA5TAB2 PO; -GABA-282; +GABA-282 PO; -OLAN2.5T25; +OLAN2.5T25 PO; -TAMS1CAP17; +TAMS1CAP17 PO
[2022-09-26] MEDS ORDERED: ONE-TAB PO (15:46)
[2022-09-26] MEDS ORDERED: LISI30TA4 PO (15:46)
[2022-09-26] MEDS ORDERED: MULT-90 PO (15:46)
[2022-09-26] MEDS ORDERED: CO Q10CA PO (15:46)
[2022-09-26] MEDS ORDERED: VANCOMYCIN HCL 2,000 MG in D5W 500 ML IV ONE (16:30)
[2022-09-26] MEDS ORDERED: PIPERACILLIN/TAZOBACTAM SOD 4.5 GM in D5W MINI-BAG PLUS 50 ML IV ONE (16:30)
[2022-09-26 16:44] LABS: HEMATOCRIT 28.1 % (42.0-52.0); HEMOGLOBIN 8.8 g/dl (13.5-17.5); MEAN CORPUSCULAR HEMOGLOBIN 26.8 pg (27.0-33.0); MEAN CORPUSCULAR HGB CONC 31.3 g/dl (32.0-36.5); MEAN CORPUSCULAR VOLUME 85.7 fl (80.0-96.0); PLATELET COUNT, AUTOMATED 116 10^3/uL (150-450); RED BLOOD COUNT 3.28 10^6/uL (4.30-6.10); WHITE BLOOD COUNT 25.9 10^3/uL (4.0-10.0)
[2022-09-26] MEDS: MORPHINE 2 MG/ML 1ML VIAL IV PRN ×3 (16:55→23:46)
[2022-09-26 16:58] LABS: INR 1.22; PROTHROMBIN TIME 15.7 SECONDS (12.5-14.5)
[2022-09-26] MEDS ORDERED: VANCOMYCIN HCL 1,000 MG, VIAL MATE ADAPTER 1 EACH in D5W 250 ML IV ONE ×6 (17:00)
[2022-09-26 17:03] LABS: LYMPHOCYTES 4 % (16-44); MONOCYTES 8 % (0-5); NEUTROPHILS 83 % (28-66); PLATELET ESTIMATE DECREASED (NORMAL)
[2022-09-26 17:07] LABS: ALBUMIN 3.5 G/DL (3.2-5.2); ALKALINE PHOSPHATASE 111 U/L (46-116); ALT/SGPT 25 U/L (7.0-40); AST/SGOT 20 U/L (<34); BILIRUBIN,DIRECT 0.6 MG/DL (<0.4); BILIRUBIN,TOTAL 1.6 MG/DL (0.3-1.2); BLOOD UREA NITROGEN 27 MG/DL (9-23); CALCIUM LEVEL 9.3 MG/DL (8.3-10.6); CARBON DIOXIDE LEVEL 22 MMOL/L (20-31); CHLORIDE LEVEL 104 MMOL/L (98-107); CK-MB VALUE MASS 3.1 NG/ML (<3.6); CPK CREATINE PHOSPHOKINASE 289 U/L (46-171); CREATININE FOR GFR 1.06 MG/DL (0.70-1.30); GLOMERULAR FILTRATION RATE > 60.0 (>42); GLUCOSE, FASTING 276 MG/DL (74-106); MB/CK RELATIVE INDEX 1.07 (< OR =4); POTASSIUM SERUM 3.8 MMOL/L (3.5-5.1); SODIUM LEVEL 137 MMOL/L (136-145); TOTAL PROTEIN 6.3 G/DL (5.7-8.2)
[2022-09-26 17:12] LABS: THYROXINE (T4) 10.3 UG/DL (4.5-10.9)
[2022-09-26 17:20] LABS: PROCALCITONIN 1.23 ng/ml
[2022-09-26] MEDS ORDERED: NS 2,000 ML in IV 1 EA IV ONE (17:25)
[2022-09-26] MEDS ORDERED: GLUCOSE 4GM CHEW TABLET PO PRN (18:40)
[2022-09-26] MEDS ORDERED: MOM 30ML SUSPENSION UDC PO PRN (18:40)
[2022-09-26] MEDS ORDERED: GLUCAGON INJ 1MG VIAL SC PRN (18:40)
[2022-09-26] MEDS ORDERED: DEXTROSE 50% 50ML SYRINGE IV PRN (18:40)
[2022-09-26] MEDS ORDERED: MAALOX 30 ML SUSP *UDC PO PRN (18:40)
[2022-09-26] MEDS ORDERED: VANCOMYCIN HCL 1,000 MG, VIAL MATE ADAPTER 1 EACH in D5W 250 ML IV SCH (18:45)
[2022-09-26] MEDS ORDERED: NS 1,200 ML in IV 1 EA IV ONE (18:50)
[2022-09-26] MEDS ORDERED: DICL1GEL3 TOP (18:52)
[2022-09-26] MEDS ORDERED: OLAN1TAB16 PO (18:52)
[2022-09-26] MEDS ORDERED: HOME MED LIST COMPLETE! XX SCH (18:55)
[2022-09-26] MEDS ORDERED: MORPHINE 2 MG/ML 1ML VIAL IV PRN (19:10)
[2022-09-26 19:42] LABS: IRON (FE) 5 UG/DL (65-175); PERCENT SATURATION 1.6 % (19.7-50.0); TOTAL IRON BINDING CAPACITY 314 UG/DL (250-425)
[2022-09-26 19:43] LABS: FERRITIN 41.9 NG/ML (10.5-307.3)
[2022-09-26 19:44] LABS: VITAMIN B12 LEVEL 318 PG/ML (211-911)
[2022-09-26 20:04] LABS: CK-MB VALUE MASS 2.4 NG/ML (<3.6)
[2022-09-26 20:06] LABS: MB/CK RELATIVE INDEX 0.88 (< OR =4)
[2022-09-26 20:26] VITALS: BP 144/63; TEMP 98.2; O2SAT 93
[2022-09-26] MEDS: GABAPENTIN 300 MG CAP PO SCH (20:59)
[2022-09-26] MEDS: INSULIN LISPRO (NovoLOG) PER UNIT SC SCH (21:00)
[2022-09-26] MEDS: DOCUSATE SODIUM 100MG CAPSULE PO SCH (21:00)
[2022-09-26] MEDS: ATORVASTATIN 20 MG TAB PO SCH (21:00)
[2022-09-26] MEDS: ACETAMINOPHEN TAB 650MG DOSE (2X325MG) PO PRN (21:10)
[2022-09-26 21:37] VITALS: BP 120/58
[2022-09-26] MEDS: OLANZapine 5 MG TAB PO SCH (21:46)
[2022-09-26] MEDS: NS 1,000 ML IV SCH (22:00)
[2022-09-26] MEDS: PIPERACILLIN/TAZOBACTAM SOD 3.375 GM in D5W MINI-BAG PLUS 50 ML IV SCH (23:43)
[2022-09-27] VITALS: BP 129/60; TEMP 98.5; O2SAT 95
[2022-09-27 04:00] VITALS: BP 139/60; TEMP 99.4; O2SAT 94
[2022-09-27] MEDS: MORPHINE 2 MG/ML 1ML VIAL IV PRN ×3 (04:11→20:11)
[2022-09-27] MEDS: PIPERACILLIN/TAZOBACTAM SOD 3.375 GM in D5W MINI-BAG PLUS 50 ML IV SCH ×4 (04:11→22:25)
[2022-09-27 05:10] LABS: HEMATOCRIT 26.3 % (42.0-52.0); HEMOGLOBIN 8.2 g/dl (13.5-17.5); MEAN CORPUSCULAR HEMOGLOBIN 26.8 pg (27.0-33.0); MEAN CORPUSCULAR HGB CONC 31.2 g/dl (32.0-36.5); MEAN CORPUSCULAR VOLUME 85.9 fl (80.0-96.0); PLATELET COUNT, AUTOMATED 110 10^3/uL (150-450); RED BLOOD COUNT 3.06 10^6/uL (4.30-6.10); WHITE BLOOD COUNT 19.5 10^3/uL (4.0-10.0)
[2022-09-27 05:33] LABS: BLOOD UREA NITROGEN 22 MG/DL (9-23); CALCIUM LEVEL 8.3 MG/DL (8.3-10.6); CARBON DIOXIDE LEVEL 22 MMOL/L (20-31); CHLORIDE LEVEL 108 MMOL/L (98-107); CREATININE FOR GFR 0.87 MG/DL (0.70-1.30); GLOMERULAR FILTRATION RATE > 60.0 (>42); GLUCOSE, FASTING 154 MG/DL (74-106); MAGNESIUM LEVEL 1.6 MG/DL (1.8-2.4); POTASSIUM SERUM 3.6 MMOL/L (3.5-5.1); SODIUM LEVEL 140 MMOL/L (136-145)
[2022-09-27 05:53] LABS: ATYPICAL LYMPH 1 % (0-5); EOSINOPHILS 2 % (0-3); LYMPHOCYTES 7 % (16-44); MONOCYTES 11 % (0-5); NEUTROPHILS 78 % (28-66)
[2022-09-27 05:54] LABS: PLATELET ESTIMATE DECREASED (NORMAL)
[2022-09-27] MEDS: NS 1,000 ML IV SCH (06:16)
[2022-09-27] MEDS: VANCOMYCIN HCL 750 MG, VIAL MATE ADAPTER 1 EACH in D5W 250 ML IV SCH ×2 (06:16→18:09)
[2022-09-27] MEDS: ACETAMINOPHEN TAB 650MG DOSE (2X325MG) PO PRN ×3 (06:24→17:30)
[2022-09-27] MEDS: MAG SULF 1GM/100ML (MAG RUN) 1 GM in IV 1 EA IV SCH ×2 (06:41→08:15)
[2022-09-27 07:29] LABS: ANTI-STREPTOLYSIN O QUANT 34.1 IU/ML (<195)
[2022-09-27 08:15] VITALS: BP 129/59; TEMP 98.4; O2SAT 93
[2022-09-27] MEDS: INSULIN LISPRO (NovoLOG) PER UNIT SC SCH ×4 (08:23→20:18)
[2022-09-27] MEDS: allopurinoL 300 MG TAB PO SCH (08:50)
[2022-09-27] MEDS: TAMSULOSIN 0.4 MG CAP PO SCH (08:50)
[2022-09-27] MEDS: DULoxetine 30MG CAPSULE (CYMBALTA) PO SCH (08:50)
[2022-09-27] MEDS: FINASTERIDE 5MG TAB PO SCH (08:50)
[2022-09-27] MEDS: MULTIVITAMINS/MINERALS THERAP 1 TAB PO SCH (08:50)
[2022-09-27] MEDS: clonazePAM 0.5 MG TAB PO SCH (08:50)
[2022-09-27] MEDS: OLANZapine 2.5MG TABLET PO SCH (08:50)
[2022-09-27] MEDS: ENOXAPARIN 40MG/0.4ML SYRINGE (J1650 PER 10MG) SC SCH (08:51)
[2022-09-27] MEDS: DOCUSATE SODIUM 100MG CAPSULE PO SCH ×2 (08:51→20:11)
[2022-09-27] MEDS: GABAPENTIN 300 MG CAP PO SCH ×4 (08:51→20:11)
[2022-09-27 11:24] VITALS: BP 150/68; TEMP 97.6; O2SAT 94
[2022-09-27] MEDS: FERROUS SULFATE 325MG TAB PO SCH ×2 (12:19→20:10)
[2022-09-27 15:35] VITALS: BP 137/60; TEMP 97.3; O2SAT 94
[2022-09-27] MEDS ORDERED: VANCOMYCIN HCL 500 MG in D5W MINI-BAG PLUS 100 ML IV ONE (19:00)
[2022-09-27 19:46] VITALS: BP 133/63; TEMP 98.3; O2SAT 95
[2022-09-27] MEDS: ATORVASTATIN 20 MG TAB PO SCH (20:11)
[2022-09-27] MEDS: OLANZapine 5 MG TAB PO SCH (20:11)
[2022-09-28 04:05] VITALS: BP 148/65; TEMP 97.9; O2SAT 93
[2022-09-28] MEDS: PIPERACILLIN/TAZOBACTAM SOD 3.375 GM in D5W MINI-BAG PLUS 50 ML IV SCH ×2 (04:13→11:16)
[2022-09-28] MEDS ORDERED: VANCOMYCIN HCL 750 MG, VIAL MATE ADAPTER 1 EACH in D5W 250 ML IV SCH (06:00)
[2022-09-28 06:40] LABS: HEMATOCRIT 26.4 % (42.0-52.0); HEMOGLOBIN 8.3 g/dl (13.5-17.5); MEAN CORPUSCULAR HGB CONC 31.4 g/dl (32.0-36.5); PLATELET COUNT, AUTOMATED 110 10^3/uL (150-450); RED BLOOD COUNT 3.07 10^6/uL (4.30-6.10); WHITE BLOOD COUNT 14.3 10^3/uL (4.0-10.0)
[2022-09-28] MEDS ORDERED: VANCOMYCIN HCL 500 MG in D5W MINI-BAG PLUS 100 ML IV SCH (07:00)
[2022-09-28 07:12] LABS: BLOOD UREA NITROGEN 16 MG/DL (9-23); CALCIUM LEVEL 7.9 MG/DL (8.3-10.6); CARBON DIOXIDE LEVEL 22 MMOL/L (20-31); CHLORIDE LEVEL 106 MMOL/L (98-107); GLOMERULAR FILTRATION RATE > 60.0 (>42); GLUCOSE, FASTING 234 MG/DL (74-106); MAGNESIUM LEVEL 1.9 MG/DL (1.8-2.4); POTASSIUM SERUM 3.7 MMOL/L (3.5-5.1); SODIUM LEVEL 136 MMOL/L (136-145)
[2022-09-28 07:18] LABS: ANISOCYTOSIS 1+; ATYPICAL LYMPH 6 % (0-5); EOSINOPHILS 1 % (0-3); HYPOCHROMASIA 1+; LYMPHOCYTES 12 % (16-44); METAMYELOCYTES 2 % (0-0); MONOCYTES 5 % (0-5); MYELOCYTES 3 % (0-0); NEUTROPHILS 71 % (28-66); PLATELET ESTIMATE NORMAL (NORMAL)
[2022-09-28 08:28] VITALS: BP 140/68; TEMP 97.7; O2SAT 95
[2022-09-28] MEDS: allopurinoL 300 MG TAB PO SCH (08:56)
[2022-09-28] MEDS: INSULIN LISPRO (NovoLOG) PER UNIT SC SCH ×4 (08:56→21:00)
[2022-09-28] MEDS: GABAPENTIN 300 MG CAP PO SCH ×4 (08:56→20:51)
[2022-09-28] MEDS: MULTIVITAMINS/MINERALS THERAP 1 TAB PO SCH (08:56)
[2022-09-28] MEDS: DOCUSATE SODIUM 100MG CAPSULE PO SCH ×2 (08:56→20:52)
[2022-09-28] MEDS: FINASTERIDE 5MG TAB PO SCH (08:57)
[2022-09-28] MEDS: DULoxetine 30MG CAPSULE (CYMBALTA) PO SCH (08:57)
[2022-09-28] MEDS: TAMSULOSIN 0.4 MG CAP PO SCH (08:57)
[2022-09-28] MEDS: clonazePAM 0.5 MG TAB PO SCH (08:58)
[2022-09-28] MEDS: FERROUS SULFATE 325MG TAB PO SCH ×2 (08:58→20:52)
[2022-09-28] MEDS: OLANZapine 2.5MG TABLET PO SCH (08:58)
[2022-09-28] MEDS: ENOXAPARIN 40MG/0.4ML SYRINGE (J1650 PER 10MG) SC SCH (09:00)
[2022-09-28] MEDS ORDERED: PREVNAR-20 VACCINE 0.5ML SYRINGE IM.IMMUN ONE (09:00)
[2022-09-28] MEDS ORDERED: FUROSEMIDE 20MG/2ML VIAL IV ONE (11:30)
[2022-09-28] MEDS: ACETAMINOPHEN TAB 650MG DOSE (2X325MG) PO PRN ×2 (13:13→17:17)
[2022-09-28 14:36] VITALS: BP 131/75; TEMP 98.4; O2SAT 94
[2022-09-28] MEDS: BACTRIM 160MG/800MG DS TAB PO SCH (20:52)
[2022-09-28] MEDS: OLANZapine 5 MG TAB PO SCH (20:52)
[2022-09-28] MEDS: ATORVASTATIN 20 MG TAB PO SCH (20:52)
[2022-09-28] MEDS: PERCOCET 5MG/325MG TAB PO PRN (20:53)
[2022-09-28] MEDS ORDERED: AUGMENTIN 875 MG TAB PO SCH (21:00)
[2022-09-28] MEDS ORDERED: DOXYCYCLINE HYCLATE 100MG TABLET PO SCH (21:00)
[2022-09-28 21:07] VITALS: BP 141/72; TEMP 97.1; O2SAT 95
[2022-09-29 05:37] LABS: HEMATOCRIT 27.2 % (42.0-52.0); HEMOGLOBIN 8.6 g/dl (13.5-17.5); MEAN CORPUSCULAR HEMOGLOBIN 26.9 pg (27.0-33.0); MEAN CORPUSCULAR HGB CONC 31.6 g/dl (32.0-36.5); PLATELET COUNT, AUTOMATED 125 10^3/uL (150-450); WHITE BLOOD COUNT 10.5 10^3/uL (4.0-10.0)
[2022-09-29 06:00] VITALS: BP 141/66; TEMP 97; O2SAT 97
[2022-09-29 06:00] LABS: BLOOD UREA NITROGEN 15 MG/DL (9-23); CALCIUM LEVEL 7.7 MG/DL (8.3-10.6); CARBON DIOXIDE LEVEL 24 MMOL/L (20-31); CHLORIDE LEVEL 106 MMOL/L (98-107); CREATININE FOR GFR 0.72 MG/DL (0.70-1.30); GLOMERULAR FILTRATION RATE > 60.0 (>42); GLUCOSE, FASTING 198 MG/DL (74-106); MAGNESIUM LEVEL 1.7 MG/DL (1.8-2.4); POTASSIUM SERUM 3.5 MMOL/L (3.5-5.1); SODIUM LEVEL 139 MMOL/L (136-145)
[2022-09-29 06:53] LABS: BASOPHILS 2 % (0-1); EOSINOPHILS 1 % (0-3); HYPOCHROMASIA 2+; LYMPHOCYTES 26 % (16-44); MONOCYTES 7 % (0-5); NEUTROPHILS 59 % (28-66); PLATELET ESTIMATE DECREASED (NORMAL)
[2022-09-29] MEDS: ACETAMINOPHEN TAB 650MG DOSE (2X325MG) PO PRN ×2 (08:17→16:03)
[2022-09-29] MEDS: DOCUSATE SODIUM 100MG CAPSULE PO SCH ×3 (08:17→20:25)
[2022-09-29] MEDS: OLANZapine 2.5MG TABLET PO SCH (08:18)
[2022-09-29] MEDS: DULoxetine 30MG CAPSULE (CYMBALTA) PO SCH (08:18)
[2022-09-29] MEDS: allopurinoL 300 MG TAB PO SCH (08:18)
[2022-09-29] MEDS: TAMSULOSIN 0.4 MG CAP PO SCH (08:18)
[2022-09-29] MEDS: GABAPENTIN 300 MG CAP PO SCH ×4 (08:18→20:25)
[2022-09-29] MEDS: FERROUS SULFATE 325MG TAB PO SCH ×2 (08:18→20:24)
[2022-09-29] MEDS: FINASTERIDE 5MG TAB PO SCH (08:18)
[2022-09-29] MEDS: MULTIVITAMINS/MINERALS THERAP 1 TAB PO SCH (08:18)
[2022-09-29] MEDS: clonazePAM 0.5 MG TAB PO SCH (08:18)
[2022-09-29] MEDS: BACTRIM 160MG/800MG DS TAB PO SCH ×2 (08:18→20:25)
[2022-09-29] MEDS: INSULIN LISPRO (NovoLOG) PER UNIT SC SCH ×4 (08:19→21:00)
[2022-09-29] MEDS: ENOXAPARIN 40MG/0.4ML SYRINGE (J1650 PER 10MG) SC SCH (08:19)
[2022-09-29] MEDS: MAG SULF 1GM/100ML (MAG RUN) 1 GM in IV 1 EA IV SCH ×2 (08:21→09:50)
[2022-09-29] MEDS: PERCOCET 5MG/325MG TAB PO PRN (12:34)
[2022-09-29 14:00] VITALS: BP 122/50; TEMP 97.5; O2SAT 94
[2022-09-29] MEDS: ATORVASTATIN 20 MG TAB PO SCH (20:24)
[2022-09-29] MEDS: OLANZapine 5 MG TAB PO SCH (20:24)
[2022-09-29 21:07] VITALS: BP 151/68; TEMP 98.1; O2SAT 96
[2022-09-30 05:40] LABS: HEMATOCRIT 29.3 % (42.0-52.0); HEMOGLOBIN 9.2 g/dl (13.5-17.5); MEAN CORPUSCULAR HEMOGLOBIN 26.6 pg (27.0-33.0); MEAN CORPUSCULAR HGB CONC 31.4 g/dl (32.0-36.5); MEAN CORPUSCULAR VOLUME 84.7 fl (80.0-96.0); PLATELET COUNT, AUTOMATED 167 10^3/uL (150-450); RED BLOOD COUNT 3.46 10^6/uL (4.30-6.10); WHITE BLOOD COUNT 11.9 10^3/uL (4.0-10.0)
[2022-09-30 06:06] LABS: BLOOD UREA NITROGEN 16 MG/DL (9-23); CALCIUM LEVEL 8.4 MG/DL (8.3-10.6); CARBON DIOXIDE LEVEL 23 MMOL/L (20-31); CHLORIDE LEVEL 105 MMOL/L (98-107); CREATININE FOR GFR 0.81 MG/DL (0.70-1.30); GLOMERULAR FILTRATION RATE > 60.0 (>42); GLUCOSE, FASTING 213 MG/DL (74-106); SODIUM LEVEL 138 MMOL/L (136-145)
[2022-09-30 06:14] VITALS: BP 153/68; TEMP 98.1; O2SAT 97
[2022-09-30] MEDS: PERCOCET 5MG/325MG TAB PO PRN (06:16)
[2022-09-30 07:27] LABS: ATYPICAL LYMPH 6 % (0-5); BASOPHILS 3 % (0-1); EOSINOPHILS 3 % (0-3); LYMPHOCYTES 15 % (16-44); MONOCYTES 10 % (0-5); NEUTROPHILS 63 % (28-66); PLATELET ESTIMATE NORMAL (NORMAL)
[2022-09-30 07:28] LABS: POLYCHROMASIA 1+
[2022-09-30] MEDS: ENOXAPARIN 40MG/0.4ML SYRINGE (J1650 PER 10MG) SC SCH (08:14)
[2022-09-30] MEDS: INSULIN LISPRO (NovoLOG) PER UNIT SC SCH (08:14)
[2022-09-30] MEDS: TAMSULOSIN 0.4 MG CAP PO SCH (08:14)
[2022-09-30] MEDS: clonazePAM 0.5 MG TAB PO SCH (08:15)
[2022-09-30] MEDS: MULTIVITAMINS/MINERALS THERAP 1 TAB PO SCH (08:15)
[2022-09-30] MEDS: BACTRIM 160MG/800MG DS TAB PO SCH (08:15)
[2022-09-30] MEDS: FERROUS SULFATE 325MG TAB PO SCH (08:15)
[2022-09-30] MEDS: GABAPENTIN 300 MG CAP PO SCH (08:15)
[2022-09-30] MEDS: DULoxetine 30MG CAPSULE (CYMBALTA) PO SCH (08:15)
[2022-09-30] MEDS: OLANZapine 2.5MG TABLET PO SCH (08:15)
[2022-09-30 08:16] VITALS: BP 154/65
[2022-09-30] MEDS: FINASTERIDE 5MG TAB PO SCH (08:16)
[2022-09-30] MEDS: allopurinoL 300 MG TAB PO SCH (08:16)
[2022-09-30] MEDS: DOCUSATE SODIUM 100MG CAPSULE PO SCH (08:16)
[2022-09-30 08:21] VITALS: BP 154/66
[2022-09-30] MEDS ORDERED: CEPH500T PO (10:10)
[2022-09-30] MEDS ORDERED: RISATAB3 PO (10:10)
== END 2022-09-30 11:25 | disposition home or self-care (01) | DRG 863 ==
LOC: M ED 15:06 → M ED INP 19:08 → ENRESERV 19:36 → M PCU 20:22 → M MSPAV 09-28 14:36
PROVIDERS: ADMIT Internal Medicine; ATTEND Internal Medicine
DX: T81.49XA Infection following a procedure, other surgical site, initial encounter (principal); E87.20 Acidosis, unspecified; L03.114 Cellulitis of left upper limb; I10 Essential (primary) hypertension; E11.40 Type 2 diabetes mellitus with diabetic neuropathy, unspecified; F32.A Depression, unspecified; D64.9 Anemia, unspecified; E78.5 Hyperlipidemia, unspecified; I25.10 Atherosclerotic heart disease of native coronary artery without angina pectoris; N40.0 Benign prostatic hyperplasia without lower urinary tract symptoms; R53.1 Weakness; M10.9 Gout, unspecified; E83.42 Hypomagnesemia; Z95.1 Presence of aortocoronary bypass graft; Z86.73 Personal history of transient ischemic attack (TIA), and cerebral infarction without residual deficits; B95.61 Methicillin susceptible Staphylococcus aureus infection as the cause of diseases classified elsewhere; Z85.828 Personal history of other malignant neoplasm of skin; Z79.899 Other long term (current) drug therapy; Z98.41 Cataract extraction status, right eye; Z98.42 Cataract extraction status, left eye; Z87.891 Personal history of nicotine dependence; D72.829 Elevated white blood cell count, unspecified; Y84.8 Other medical procedures as the cause of abnormal reaction of the patient, or of later complication, without mention of misadventure at the time of the procedure

== ENCOUNTER → 2022-10-12 | Outpatient (CLI) | payer MEDICARE, BC ==
[~2022-10-12] MED LIST changes: +CEPH500T PO; +CO Q10CA PO; +DICL1GEL3 TOP; +LISI30TA4 PO; +MULT-90 PO; +OLAN1TAB16 PO; +ONE-TAB PO; +RISATAB3 PO
[2022-10-12 15:59] LABS: HEMOGLOBIN A1c 10.3 % (4.0-6.0)
== END ==
LOC: M PLALAB 12:00
PROVIDERS: ATTEND Nurse Practitioner Adult Health
DX: E11.9 Type 2 diabetes mellitus without complications (principal)

== ENCOUNTER → 2022-11-12 | Outpatient (CLI) | payer MEDICARE, BC ==
[~2022-11-12] MED LIST changes: +DICL100G10 TOP; -DICL1GEL3 TOP
== END ==
LOC: M SOG 13:26
PROVIDERS: ATTEND Orthopaedic Surgery
DX: M17.0 Bilateral primary osteoarthritis of knee (principal); Z53.9 Procedure and treatment not carried out, unspecified reason

== ENCOUNTER → 2023-01-18 | Outpatient (CLI) | payer MEDICARE, BC ==
[~2023-01-18] MED LIST changes: -OXYB5TAB10; +OXYB5TAB11
[2023-01-19 01:54] LABS: ALKALINE PHOSPHATASE 112 U/L (46-116); ALT/SGPT 25 U/L (7.0-40); AST/SGOT 21 U/L (<34); BILIRUBIN,TOTAL 0.9 MG/DL (0.3-1.2); BLOOD UREA NITROGEN 20 MG/DL (9-23); CALCIUM LEVEL 9.7 MG/DL (8.3-10.6); CARBON DIOXIDE LEVEL 26 MMOL/L (20-31); CHLORIDE LEVEL 103 MMOL/L (98-107); CHOLESTEROL LEVEL 103 MG/DL (<200); CREATININE FOR GFR 0.82 MG/DL (0.70-1.30); GLOMERULAR FILTRATION RATE > 60.0 (>42); GLUCOSE, FASTING 78 MG/DL (74-106); HDL CHOLESTEROL 27.1 MG/DL (>40); LDL CHOLESTEROL 33.5 MG/DL (<100); MAGNESIUM LEVEL 1.8 MG/DL (1.8-2.4); NON-HDL-C 75.9 MG/DL; POTASSIUM SERUM 3.9 MMOL/L (3.5-5.1); SODIUM LEVEL 138 MMOL/L (136-145); TRIGLYCERIDES LEVEL 212 MG/DL (<150); VITAMIN B12 LEVEL 635 PG/ML (211-911)
== END ==
LOC: M PLALAB 11:06
PROVIDERS: ATTEND Nurse Practitioner Adult Health
DX: M62.81 Muscle weakness (generalized) (principal); I10 Essential (primary) hypertension; M1A.0790 Idiopathic chronic gout, unspecified ankle and foot, without tophus (tophi); E53.8 Deficiency of other specified B group vitamins; E11.22 Type 2 diabetes mellitus with diabetic chronic kidney disease; E78.5 Hyperlipidemia, unspecified

== ENCOUNTER → 2023-02-23 | Outpatient (CLI) | payer MEDICARE, BC ==
[~2023-02-23] MED LIST changes: +HYDR12.55; +JANU100T; +METF-838 PO
[2023-02-23 17:42] LABS: BASO % 0.4 % (0.0-1.0); EOS # 0.1 10^3/uL (0.0-0.5); HEMATOCRIT 30.3 % (42.0-52.0); HEMOGLOBIN 9.6 g/dl (13.5-17.5); LYMPH # 1.8 10^3/uL (1.5-5.0); LYMPH % 22.1 % (24.0-44.0); MEAN CORPUSCULAR HEMOGLOBIN 27.7 pg (27.0-33.0); MEAN CORPUSCULAR HGB CONC 31.7 g/dl (32.0-36.5); MEAN CORPUSCULAR VOLUME 87.6 fl (80.0-96.0); MONO % 19.7 % (2.0-8.0); NEUTROPHILS # 4.6 10^3/uL (1.5-8.5); NEUTROPHILS % 56.1 % (36.0-66.0); PLATELET COUNT, AUTOMATED 107 10^3/uL (150-450); RED BLOOD COUNT 3.46 10^6/uL (4.30-6.10); WHITE BLOOD COUNT 8.2 10^3/uL (4.0-10.0)
[2023-02-23 17:57] LABS: INR 1.12; PROTHROMBIN TIME 14.1 SECONDS (12.5-14.5)
[2023-02-23 18:08] LABS: ALBUMIN 4.1 G/DL (3.2-5.2); ALKALINE PHOSPHATASE 103 U/L (46-116); ALT/SGPT 21 U/L (7.0-40); AST/SGOT 11 U/L (<34); BLOOD UREA NITROGEN 23 MG/DL (9-23); CALCIUM LEVEL 9.3 MG/DL (8.3-10.6); CARBON DIOXIDE LEVEL 28 MMOL/L (20-31); CHLORIDE LEVEL 103 MMOL/L (98-107); CREATININE FOR GFR 0.79 MG/DL (0.70-1.30); FERRITIN 14.1 NG/ML (10.5-307.3); GLOMERULAR FILTRATION RATE > 60.0 (>42); GLUCOSE, FASTING 129 MG/DL (74-106); IRON (FE) 32 UG/DL (65-175); MAGNESIUM LEVEL 1.9 MG/DL (1.8-2.4); PERCENT SATURATION 8.9 % (19.7-50.0); POTASSIUM SERUM 4.2 MMOL/L (3.5-5.1); SODIUM LEVEL 140 MMOL/L (136-145); TOTAL IRON BINDING CAPACITY 359 UG/DL (250-425)
[2023-02-23 18:09] LABS: FOLATE > 24.0 NG/ML (>5.4)
[2023-02-23 18:10] LABS: MONO # 1.6 10^3/uL (0.0-0.8); VITAMIN B12 LEVEL 555 PG/ML (211-911)
== END ==
LOC: M PLALAB 16:05
PROVIDERS: ATTEND Physician Assistant
DX: R42 Dizziness and giddiness (principal); R53.83 Other fatigue; D64.9 Anemia, unspecified; R16.0 Hepatomegaly, not elsewhere classified; E83.40 Disorders of magnesium metabolism, unspecified

== ENCOUNTER → 2023-03-02 | Outpatient (CLI) | payer MEDICARE, BC ==
[~2023-03-02] VITALS: Ht 188 cm; Wt 105.0 kg
[~2023-03-02] MED LIST changes: +ALBUTEROL SULFATE 2.5MG/0.5ML INH NEB SOLN INH PRN; +EPINEPHrine INJ 1 MG/ML 1ML AMP IM PRN; +FERRIC CARBOXYMALTOSE INJ 750 MG in NS 250 ML (>50kg) IV ONE; +diphenhydrAMINE 50MG/ML VIAL IV PRN; +methylPREDNISolone 125MG 2ML VIAL IV PRN
[2023-03-02 13:00] VITALS: BP 144/65; O2SAT 99
[2023-03-02 14:29] VITALS: BP 137/63; O2SAT 99
== END ==
LOC: M INFU 12:49
PROVIDERS: ATTEND Physician Assistant
DX: D50.9 Iron deficiency anemia, unspecified (principal)
CPT/HCPCS: 96365; J1439

== ENCOUNTER 2023-03-09 12:20 | Outpatient (CLI) | payer MEDICARE, BC ==
[~2023-03-09] VITALS: Ht 188 cm; Wt 102.0 kg
[~2023-03-09 12:20] MED LIST changes: -FERRIC CARBOXYMALTOSE INJ 750 MG in NS 250 ML (>50kg) IV ONE
[2023-03-09 12:25] VITALS: BP 133/62; O2SAT 99
[2023-03-09] MEDS ORDERED: NS 1,000 ML IV SCH (12:30)
[2023-03-09] MEDS ORDERED: FERRIC CARBOXYMALTOSE INJ 750 MG in NS 250 ML (>50kg) IV ONE ×3 (12:30)
[2023-03-09 13:45] VITALS: BP 143/66; O2SAT 98
== END 2023-03-09 13:45 | disposition home or self-care (01) ==
LOC: M INFU 12:20
PROVIDERS: ATTEND Physician Assistant
DX: D50.9 Iron deficiency anemia, unspecified (principal)
CPT/HCPCS: 96365; J1439

== ENCOUNTER → 2023-04-15 | Outpatient (CLI) | payer MEDICARE, BC ==
[~2023-04-15] MED LIST changes: -ALBUTEROL SULFATE 2.5MG/0.5ML INH NEB SOLN INH PRN; -EPINEPHrine INJ 1 MG/ML 1ML AMP IM PRN; -diphenhydrAMINE 50MG/ML VIAL IV PRN; -methylPREDNISolone 125MG 2ML VIAL IV PRN
[2023-04-15 15:53] LABS: INR 1.13; PROTHROMBIN TIME 14.1 SECONDS (12.5-14.5)
[2023-04-16 07:05] LABS: TOTAL IRON BINDING CAPACITY 292 UG/DL (250-425)
[2023-04-16 07:06] LABS: ALBUMIN 4.2 G/DL (3.2-5.2); ALKALINE PHOSPHATASE 111 U/L (46-116); ALT/SGPT 32 U/L (7.0-40); AST/SGOT 17 U/L (<34); BILIRUBIN,DIRECT 0.3 MG/DL (<0.4); BILIRUBIN,TOTAL 0.9 MG/DL (0.3-1.2); IRON (FE) 79 UG/DL (65-175); PERCENT SATURATION 27.1 % (19.7-50.0); TOTAL PROTEIN 6.6 G/DL (5.7-8.2)
[2023-04-16 07:40] LABS: HEPATITIS B CORE ANTIBODY IGM NEGATIVE (NEGATIVE); HEPATITIS C VIRUS ABY INDEX 0.03 INDEX (<0.8)
== END ==
LOC: M PLALAB 12:40
PROVIDERS: ATTEND Internal Medicine Gastroenterology
DX: K74.60 Unspecified cirrhosis of liver (principal); D50.9 Iron deficiency anemia, unspecified; Z11.59 Encounter for screening for other viral diseases

== ENCOUNTER → 2023-04-15 | Outpatient (CLI) | payer MEDICARE, BC ==
[2023-04-15 15:38] LABS: HEMATOCRIT 32.5 % (42.0-52.0); HEMOGLOBIN 10.6 g/dl (13.5-17.5); MEAN CORPUSCULAR HEMOGLOBIN 28.6 pg (27.0-33.0); MEAN CORPUSCULAR HGB CONC 32.6 g/dl (32.0-36.5); MEAN CORPUSCULAR VOLUME 87.8 fl (80.0-96.0); PLATELET COUNT, AUTOMATED 114 10^3/uL (150-450); WHITE BLOOD COUNT 7.8 10^3/uL (4.0-10.0)
[2023-04-15 16:08] LABS: ALBUMIN 4.2 G/DL (3.2-5.2); ALKALINE PHOSPHATASE 116 U/L (46-116); ALT/SGPT 31 U/L (7.0-40); AST/SGOT 14 U/L (<34); BLOOD UREA NITROGEN 23 MG/DL (9-23); CALCIUM LEVEL 9.7 MG/DL (8.3-10.6); CARBON DIOXIDE LEVEL 25 MMOL/L (20-31); CHLORIDE LEVEL 104 MMOL/L (98-107); CREATININE FOR GFR 0.86 MG/DL (0.70-1.30); GLOMERULAR FILTRATION RATE > 60.0 (>42); GLUCOSE, FASTING 173 MG/DL (74-106); IRON (FE) 81 UG/DL (65-175); PERCENT SATURATION 26.1 % (19.7-50.0); POTASSIUM SERUM 4.4 MMOL/L (3.5-5.1); SODIUM LEVEL 135 MMOL/L (136-145); TOTAL IRON BINDING CAPACITY 310 UG/DL (250-425); TOTAL PROTEIN 6.9 G/DL (5.7-8.2)
[2023-04-15 16:10] LABS: FERRITIN 223.8 NG/ML (10.5-307.3)
[2023-04-15 16:14] LABS: HEMOGLOBIN A1c 7.8 % (4.0-6.0)
== END ==
LOC: M PLALAB 12:37
PROVIDERS: ATTEND Nurse Practitioner Adult Health
DX: E11.9 Type 2 diabetes mellitus without complications (principal); D50.9 Iron deficiency anemia, unspecified

== ENCOUNTER 2023-06-14 09:36 | Day surgery (SDC) | payer MEDICARE, BC ==
[~2023-06-14] VITALS: Ht 188 cm; Wt 105.0 kg
[2023-06-14] MEDS: NS 1,000 ML IV ONE (06:00)
[~2023-06-14 09:36] MED LIST changes: +HYDR12.55 PO; -OXYB5TAB11; +OXYB5TAB14; +ZYPR2.5T2 PO
[2023-06-14] MEDS ORDERED: propofoL 500 MG/50 ML VIAL As Ordered ONE (10:09)
[2023-06-14] MEDS ORDERED: LIDOCAINE 2% 100MG/5ML SDV (FOR ANES.) As Ordered ONE (10:10)
[2023-06-14] MEDS ORDERED: fentaNYL 100 MCG/2 ML INJECTION As Ordered ONE (10:13)
[2023-06-14 12:00] VITALS: TEMP 98
[2023-06-14 12:22] VITALS: BP 162/70; O2SAT 100
== END 2023-06-14 12:29 | disposition home or self-care (01) ==
LOC: M OPP 09:36
PROVIDERS: ATTEND Internal Medicine Gastroenterology
DX: K64.8 Other hemorrhoids (principal); K64.4 Residual hemorrhoidal skin tags; Q43.8 Other specified congenital malformations of intestine; D50.9 Iron deficiency anemia, unspecified; K29.70 Gastritis, unspecified, without bleeding; Z13.810 Encounter for screening for upper gastrointestinal disorder; Z87.891 Personal history of nicotine dependence; E11.9 Type 2 diabetes mellitus without complications; I25.10 Atherosclerotic heart disease of native coronary artery without angina pectoris; Z79.02 Long term (current) use of antithrombotics/antiplatelets; Z79.83 Long term (current) use of bisphosphonates; Z79.818 Long term (current) use of other agents affecting estrogen receptors and estrogen levels; Z79.84 Long term (current) use of oral hypoglycemic drugs; Z79.891 Long term (current) use of opiate analgesic; Z79.899 Other long term (current) drug therapy
CPT/HCPCS: 43239; 45378; 88305; J3010

== ENCOUNTER → 2023-08-03 | Outpatient (REF) | payer MEDICARE, BC ==
[2023-08-03 18:49] LABS: HEMATOCRIT 31.4 % (42.0-52.0); HEMOGLOBIN 10.4 g/dl (13.5-17.5); MEAN CORPUSCULAR HEMOGLOBIN 29.5 pg (27.0-33.0); MEAN CORPUSCULAR HGB CONC 33.1 g/dl (32.0-36.5); MEAN CORPUSCULAR VOLUME 89.2 fl (80.0-96.0); PLATELET COUNT, AUTOMATED 108 10^3/uL (150-450); RED BLOOD COUNT 3.52 10^6/uL (4.30-6.10)
[2023-08-03 18:54] LABS: HEMOGLOBIN A1c 7.4 % (4.0-6.0)
[2023-08-03 19:17] LABS: FERRITIN 127.6 NG/ML (10.5-307.3)
[2023-08-03 19:18] LABS: IRON (FE) 55 UG/DL (65-175); PERCENT SATURATION 19.6 % (19.7-50.0); TOTAL IRON BINDING CAPACITY 281 UG/DL (250-425)
[2023-08-03 19:19] LABS: ALBUMIN 3.9 G/DL (3.2-5.2); ALKALINE PHOSPHATASE 93 U/L (46-116); ALT/SGPT 30 U/L (7.0-40); AST/SGOT 19 U/L (<34); BILIRUBIN,TOTAL 0.9 MG/DL (0.3-1.2); BLOOD UREA NITROGEN 23 MG/DL (9-23); CALCIUM LEVEL 9.5 MG/DL (8.3-10.6); CARBON DIOXIDE LEVEL 24 MMOL/L (20-31); CHLORIDE LEVEL 106 MMOL/L (98-107); CHOLESTEROL LEVEL 121 MG/DL (<200); CHOLESTEROL RISK RATIO 4.33 (<5); GLOMERULAR FILTRATION RATE > 60.0 (>35); GLUCOSE, FASTING 113 MG/DL (74-106); HDL CHOLESTEROL 27.9 MG/DL (>40); LDL CHOLESTEROL 32.1 MG/DL (<100); MAGNESIUM LEVEL 1.6 MG/DL (1.8-2.4); NON-HDL-C 93.1 MG/DL; POTASSIUM SERUM 4.3 MMOL/L (3.5-5.1); SODIUM LEVEL 140 MMOL/L (136-145); TOTAL PROTEIN 6.8 G/DL (5.7-8.2); TRIGLYCERIDES LEVEL 305 MG/DL (<150)
== END ==
LOC: M LABDRAWP 17:14
PROVIDERS: ATTEND Nurse Practitioner Adult Health
DX: Z00.00 Encounter for general adult medical examination without abnormal findings (principal); E11.9 Type 2 diabetes mellitus without complications; D50.9 Iron deficiency anemia, unspecified; E83.40 Disorders of magnesium metabolism, unspecified; E78.5 Hyperlipidemia, unspecified

== ENCOUNTER → 2023-10-18 | Outpatient (CLI) | payer MEDICARE, BC ==
[2023-10-18 19:55] LABS: ALBUMIN 4.1 G/DL (3.2-5.2); ALKALINE PHOSPHATASE 106 U/L (46-116); ALT/SGPT 22 U/L (7.0-40); AST/SGOT < 8 U/L (<34); BILIRUBIN,TOTAL 0.9 MG/DL (0.3-1.2); BLOOD UREA NITROGEN 20 MG/DL (9-23); CALCIUM LEVEL 9.5 MG/DL (8.3-10.6); CARBON DIOXIDE LEVEL 26 MMOL/L (20-31); CHLORIDE LEVEL 106 MMOL/L (98-107); CHOLESTEROL LEVEL 115 MG/DL (<200); CHOLESTEROL RISK RATIO 4.71 (<5); GLOMERULAR FILTRATION RATE > 60.0 (>35); GLUCOSE, FASTING 175 MG/DL (74-106); HDL CHOLESTEROL 24.4 MG/DL (>40); MAGNESIUM LEVEL 1.6 MG/DL (1.8-2.4); NON-HDL-C 90.6 MG/DL; POTASSIUM SERUM 4.2 MMOL/L (3.5-5.1); SODIUM LEVEL 138 MMOL/L (136-145); TOTAL PROTEIN 6.8 G/DL (5.7-8.2); TRIGLYCERIDES LEVEL 405 MG/DL (<150)
== END ==
LOC: M PLALAB 16:06
PROVIDERS: ATTEND Internal Medicine Cardiovascular Disease
DX: E78.2 Mixed hyperlipidemia (principal); I11.9 Hypertensive heart disease without heart failure; I48.91 Unspecified atrial fibrillation; R06.02 Shortness of breath

== ENCOUNTER → 2023-11-08 | Outpatient (CLI) | payer MEDICARE, BC | LOC: M PLALAB 10:46 | PROVIDERS: ATTEND Nurse Practitioner Adult Health | DX: E11.9 Type 2 diabetes mellitus without complications (principal) ==

== ENCOUNTER → 2023-12-01 | Outpatient (CLI) | payer MEDICARE, BC ==
[2023-12-01 19:02] LABS: ALBUMIN 3.8 G/DL (3.2-5.2); ALKALINE PHOSPHATASE 78 U/L (46-116); ALT/SGPT 35 U/L (7.0-40); AST/SGOT 22 U/L (<34); BILIRUBIN,TOTAL 1.2 MG/DL (0.3-1.2); BLOOD UREA NITROGEN 19 MG/DL (9-23); CALCIUM LEVEL 9.3 MG/DL (8.3-10.6); CARBON DIOXIDE LEVEL 26 MMOL/L (20-31); CHLORIDE LEVEL 112 MMOL/L (98-107); CHOLESTEROL LEVEL 80 MG/DL (<200); CHOLESTEROL RISK RATIO 2.71 (<5); CREATININE FOR GFR 1.01 MG/DL (0.70-1.30); GLOMERULAR FILTRATION RATE > 60.0 (>35); GLUCOSE, FASTING 95 MG/DL (74-106); HDL CHOLESTEROL 29.5 MG/DL (>40); LDL CHOLESTEROL 24.9 MG/DL (<100); MAGNESIUM LEVEL 1.8 MG/DL (1.8-2.4); NON-HDL-C 50.5 MG/DL; POTASSIUM SERUM 3.5 MMOL/L (3.5-5.1); SODIUM LEVEL 145 MMOL/L (136-145); TOTAL PROTEIN 6.5 G/DL (5.7-8.2); TRIGLYCERIDES LEVEL 128 MG/DL (<150)
== END ==
LOC: M PLALAB 16:01
PROVIDERS: ATTEND Internal Medicine Cardiovascular Disease
DX: I25.118 Atherosclerotic heart disease of native coronary artery with other forms of angina pectoris (principal); E78.2 Mixed hyperlipidemia; E11.69 Type 2 diabetes mellitus with other specified complication

== ENCOUNTER → 2023-12-14 | Outpatient (CLI) | payer MEDICARE, BC ==
[2023-12-14 15:13] LABS: HEMATOCRIT 30.3 % (42.0-52.0); HEMOGLOBIN 9.7 g/dl (13.5-17.5); LYMPH % 23.1 % (24.0-44.0); MEAN CORPUSCULAR HEMOGLOBIN 28.7 pg (27.0-33.0); MEAN CORPUSCULAR VOLUME 89.6 fl (80.0-96.0); NEUTROPHILS % 53.4 % (36.0-66.0); PLATELET COUNT, AUTOMATED 101 10^3/uL (150-450); RED BLOOD COUNT 3.38 10^6/uL (4.30-6.10); WHITE BLOOD COUNT 9.1 10^3/uL (4.0-10.0)
[2023-12-14 15:14] LABS: BASO # 0.1 10^3/uL (0.0-0.2); BASO % 0.7 % (0.0-1.0); EOS # 0.2 10^3/uL (0.0-0.5); EOS % 1.9 % (0.0-3.0); LYMPH # 2.1 10^3/uL (1.5-5.0); MONO # 1.8 10^3/uL (0.0-0.8); MONO % 19.4 % (2.0-8.0); NEUTROPHILS # 4.9 10^3/uL (1.5-8.5)
[2023-12-14 15:52] LABS: BLOOD UREA NITROGEN 25 MG/DL (9-23); CALCIUM LEVEL 9.8 MG/DL (8.3-10.6); CARBON DIOXIDE LEVEL 24 MMOL/L (20-31); CHLORIDE LEVEL 109 MMOL/L (98-107); CREATININE FOR GFR 0.99 MG/DL (0.70-1.30); GLOMERULAR FILTRATION RATE > 60.0 (>35); GLUCOSE, FASTING 163 MG/DL (74-106); POTASSIUM SERUM 4.2 MMOL/L (3.5-5.1); SODIUM LEVEL 141 MMOL/L (136-145)
== END ==
LOC: M PLALAB 11:14
PROVIDERS: ATTEND Internal Medicine Cardiovascular Disease
DX: I48.0 Paroxysmal atrial fibrillation (principal)

== ENCOUNTER → 2024-01-07 | Outpatient (CLI) | payer MEDICARE, BC ==
[~2024-01-07] MED LIST changes: +GABA-1172 PO; -GABA-282 PO; -OLAN2.5T25 PO; +OLAN2.5T53 PO
[2024-01-07 18:16] LABS: HEMATOCRIT 27.8 % (42.0-52.0); MEAN CORPUSCULAR HEMOGLOBIN 28.7 pg (27.0-33.0); MEAN CORPUSCULAR HGB CONC 32.4 g/dl (32.0-36.5); MEAN CORPUSCULAR VOLUME 88.5 fl (80.0-96.0); RED BLOOD COUNT 3.14 10^6/uL (4.30-6.10); WHITE BLOOD COUNT 8.8 10^3/uL (4.0-10.0)
[2024-01-07 18:17] LABS: HEMATOCRIT 27.4 % (42.0-52.0)
[2024-01-07 18:44] LABS: HEMOGLOBIN A1c 8.6 % (4.0-6.0)
[2024-01-07 18:50] LABS: IRON (FE) 49 UG/DL (65-175); PERCENT SATURATION 17.8 % (19.7-50.0); TOTAL IRON BINDING CAPACITY 276 UG/DL (250-425)
[2024-01-07 18:51] LABS: ALBUMIN 3.9 G/DL (3.2-5.2); ALKALINE PHOSPHATASE 92 U/L (46-116); ALT/SGPT 27 U/L (7.0-40); AST/SGOT 10 U/L (<34); BILIRUBIN,TOTAL 0.9 MG/DL (0.3-1.2); BLOOD UREA NITROGEN 33 MG/DL (9-23); CALCIUM LEVEL 9.7 MG/DL (8.3-10.6); CARBON DIOXIDE LEVEL 24 MMOL/L (20-31); CHLORIDE LEVEL 109 MMOL/L (98-107); CREATININE FOR GFR 0.85 MG/DL (0.70-1.30); GLOMERULAR FILTRATION RATE > 60.0 (>35); GLUCOSE, FASTING 136 MG/DL (74-106); POTASSIUM SERUM 4.2 MMOL/L (3.5-5.1); SODIUM LEVEL 137 MMOL/L (136-145); TOTAL PROTEIN 6.7 G/DL (5.7-8.2)
[2024-01-07 18:54] LABS: FERRITIN 118.7 NG/ML (10.5-307.3)
[2024-01-07 19:44] LABS: PLATELET COUNT, AUTOMATED 88 10^3/uL (150-450)
[2024-01-07 19:49] LABS: ATYPICAL LYMPH 6 % (0-5); BASOPHILS 1 % (0-1); EOSINOPHILS 3 % (0-3); LYMPHOCYTES 32 % (16-44); MONOCYTES 8 % (0-5); NEUTROPHILS 49 % (28-66)
[2024-01-07 19:50] LABS: PLATELET ESTIMATE DECREASED (NORMAL)
[2024-01-07 19:51] LABS: POIKILOCYTOSIS 2+
[2024-01-07 19:52] LABS: OVALOCYTES 1+
== END ==
LOC: M PLALAB 15:58
PROVIDERS: ATTEND Nurse Practitioner Adult Health
DX: D64.9 Anemia, unspecified (principal); E11.9 Type 2 diabetes mellitus without complications

== ENCOUNTER → 2024-02-10 | Outpatient (CLI) | payer MEDICARE, BC ==
[2024-02-10 13:16] LABS: HEMOGLOBIN 10.6 g/dl (13.5-17.5); MEAN CORPUSCULAR HEMOGLOBIN 28.9 pg (27.0-33.0); MEAN CORPUSCULAR HGB CONC 33.1 g/dl (32.0-36.5); MEAN CORPUSCULAR VOLUME 87.2 fl (80.0-96.0); RED BLOOD COUNT 3.67 10^6/uL (4.30-6.10); WHITE BLOOD COUNT 8.2 10^3/uL (4.0-10.0)
[2024-02-10 14:29] LABS: PLATELET COUNT, AUTOMATED 97 10^3/uL (150-450)
[2024-02-10 14:32] LABS: EOSINOPHILS 1 % (0-3); LYMPHOCYTES 28 % (16-44); MONOCYTES 19 % (0-5); NEUTROPHILS 52 % (28-66); PLATELET ESTIMATE DECREASED (NORMAL)
== END ==
LOC: M PLALAB 11:50
PROVIDERS: ATTEND Nurse Practitioner Adult Health
DX: D50.9 Iron deficiency anemia, unspecified (principal); D69.6 Thrombocytopenia, unspecified; D46.A Refractory cytopenia with multilineage dysplasia

== ENCOUNTER → 2024-02-16 | Outpatient (CLI) | payer MEDICARE, BC ==
[2024-02-16 19:33] LABS: BASO # 0.1 10^3/uL (0.0-0.2); BASO % 0.8 % (0.0-1.0); EOS # 0.2 10^3/uL (0.0-0.5); EOS % 2.5 % (0.0-3.0); HEMATOCRIT 31.9 % (42.0-52.0); HEMOGLOBIN 10.4 g/dl (13.5-17.5); LYMPH # 2.9 10^3/uL (1.5-5.0); MEAN CORPUSCULAR HEMOGLOBIN 28.9 pg (27.0-33.0); MEAN CORPUSCULAR HGB CONC 32.6 g/dl (32.0-36.5); MEAN CORPUSCULAR VOLUME 88.6 fl (80.0-96.0); MONO # 1.7 10^3/uL (0.0-0.8); MONO % 17.8 % (2.0-8.0); NEUTROPHILS # 4.6 10^3/uL (1.5-8.5); NEUTROPHILS % 47.6 % (36.0-66.0); PLATELET COUNT, AUTOMATED 111 10^3/uL (150-450); WHITE BLOOD COUNT 9.7 10^3/uL (4.0-10.0)
== END ==
LOC: M PLALAB 16:30
PROVIDERS: ATTEND Internal Medicine Hematology
DX: D69.3 Immune thrombocytopenic purpura (principal)

== ENCOUNTER → 2024-04-03 | Outpatient (REF) | payer MEDICARE, BC ==
[2024-04-03 18:23] LABS: BASO # 0.1 10^3/uL (0.0-0.2); BASO % 0.6 % (0.0-1.0); EOS # 0.2 10^3/uL (0.0-0.5); EOS % 1.7 % (0.0-3.0); HEMATOCRIT 30.6 % (42.0-52.0); HEMOGLOBIN 9.9 g/dl (13.5-17.5); LYMPH # 2.1 10^3/uL (1.5-5.0); LYMPH % 23.8 % (24.0-44.0); MEAN CORPUSCULAR HGB CONC 32.4 g/dl (32.0-36.5); MEAN CORPUSCULAR VOLUME 86.4 fl (80.0-96.0); MONO # 1.9 10^3/uL (0.0-0.8); MONO % 22.2 % (2.0-8.0); NEUTROPHILS # 4.4 10^3/uL (1.5-8.5); NEUTROPHILS % 50.7 % (36.0-66.0); PLATELET COUNT, AUTOMATED 123 10^3/uL (150-450); RED BLOOD COUNT 3.54 10^6/uL (4.30-6.10); WHITE BLOOD COUNT 8.7 10^3/uL (4.0-10.0)
[2024-04-03 18:58] LABS: ALBUMIN 3.8 G/DL (3.2-5.2); ALKALINE PHOSPHATASE 88 U/L (40-129); ALT/SGPT 21 U/L (7.0-40); AST/SGOT 13 U/L (<34); BILIRUBIN,TOTAL 0.6 MG/DL (0.3-1.2); BLOOD UREA NITROGEN 24 MG/DL (9-23); CALCIUM LEVEL 9.7 MG/DL (8.3-10.6); CARBON DIOXIDE LEVEL 25 MMOL/L (20-31); CHLORIDE LEVEL 107 MMOL/L (98-107); CREATININE FOR GFR 1.01 MG/DL (0.70-1.30); GLOMERULAR FILTRATION RATE > 60.0 (>35); GLUCOSE, FASTING 107 MG/DL (74-106); MAGNESIUM LEVEL 1.9 MG/DL (1.8-2.4); POTASSIUM SERUM 4.7 MMOL/L (3.5-5.1); SODIUM LEVEL 141 MMOL/L (136-145)
[2024-04-03 19:23] LABS: HEMOGLOBIN A1c 9.3 % (4.0-6.0)
== END ==
LOC: M PLALAB 17:36
PROVIDERS: ATTEND Nurse Practitioner Adult Health
DX: E11.9 Type 2 diabetes mellitus without complications (principal); E83.40 Disorders of magnesium metabolism, unspecified; D69.3 Immune thrombocytopenic purpura

== ENCOUNTER 2024-04-24 16:32 | Observation (INO) | payer MEDICARE, BC ==
[~2024-04-24] VITALS: Ht 188 cm; Wt 94.3 kg
[~2024-04-24 16:32] MED LIST changes: +CARV3.12 PO; +CEFD300CAP PO; +DULO60CA35 PO; +FARX1TAB3 PO; +FERR32TA PO; +GNP250TA9 PO; +ISOS1TAB35 PO; +JANU100T PO; +METR-265 PO; +NIRM1TAB13 PO; +OMEP-173 PO; +ROSU40TA81 PO
[2024-04-24 17:46] LABS: HEMATOCRIT 27.5 % (42.0-52.0); HEMOGLOBIN 8.7 g/dl (13.5-17.5); MEAN CORPUSCULAR HEMOGLOBIN 27.2 pg (27.0-33.0); MEAN CORPUSCULAR HGB CONC 31.6 g/dl (32.0-36.5); MEAN CORPUSCULAR VOLUME 85.9 fl (80.0-96.0); PLATELET COUNT, AUTOMATED 101 10^3/uL (150-450); WHITE BLOOD COUNT 19.1 10^3/uL (4.0-10.0)
[2024-04-24 17:58] LABS: BASOPHILS 1 % (0-1); LYMPHOCYTES 13 % (16-44); MONOCYTES 13 % (0-5); NEUTROPHILS 73 % (28-66); PLATELET ESTIMATE DECREASED (NORMAL)
[2024-04-24 18:17] LABS: CK-MB VALUE MASS 1.5 NG/ML (<3.6)
[2024-04-24 18:20] LABS: ALBUMIN 3.5 G/DL (3.2-5.2); BILIRUBIN,DIRECT 0.3 MG/DL (<0.4); BILIRUBIN,TOTAL 0.7 MG/DL (0.3-1.2); CALCIUM LEVEL 8.6 MG/DL (8.3-10.6); CREATININE FOR GFR 1.41 MG/DL (0.70-1.30); GLOMERULAR FILTRATION RATE 51.5 (>35); MB/CK RELATIVE INDEX 3.84 (< OR =4); POTASSIUM SERUM 4.4 MMOL/L (3.5-5.1); TOTAL PROTEIN 6.4 G/DL (5.7-8.2)
[2024-04-24 18:22] LABS: THYROID STIMULATING HORMONE 1.685 uIU/ML (0.55-4.78)
[2024-04-24] MEDS: LIDOCAINE 2% 5ML JELLY UROJET TOP ONE (19:50)
[2024-04-24 20:31] LABS: KETONE, URINE AUTO RFX NEGATIVE (NEGATIVE); LEUKOCYTE ESTERASE UR AUTO RFX NEGATIVE (NEGATIVE); MUCUS, URINE RFX SMALL (NEGATIVE); NITRITE, URINE AUTO RFX NEGATIVE (NEGATIVE); RBC, URINE AUTO RFX 0 /HPF (0-3); SQUAM EPITHELIAL CELL UR AURFX 0 /HPF (0-6); WBC, URINE AUTO RFX 1 /HPF (0-3)
[2024-04-24] MEDS ORDERED: HOME MED LIST COMPLETE! XX SCH (21:40)
[2024-04-24] MEDS ORDERED: MAALOX 30 ML SUSP *UDC PO PRN (22:35)
[2024-04-24] MEDS: clonazePAM 0.5 MG TAB PO ONE (23:14)
[2024-04-24] MEDS: NS (Normal Saline) 0.9% 1,000 ML IV SCH (23:15)
[2024-04-24] MEDS: ACETAMINOPHEN 325 MG TAB PO PRN (23:15)
[2024-04-24 23:57] VITALS: BP 93/58; TEMP 97.9; O2SAT 100
[2024-04-25 03:47] VITALS: BP 135/64; TEMP 97.5; O2SAT 98
[2024-04-25] MEDS ORDERED: clonazePAM 0.5 MG TAB PO PRN (04:50)
[2024-04-25] MEDS: CARVedilol 3.125 MG TAB PO SCH (09:00)
[2024-04-25] MEDS: SITagliptin 50 MG TAB (JANUVIA) PO SCH (09:10)
[2024-04-25] MEDS: DOCUSATE SODIUM 100MG CAPSULE PO SCH (09:10)
[2024-04-25] MEDS: DAPAGLIFLOZIN PROPANEDIOL 10MG TABLET (FARXIGA) PO SCH (09:10)
[2024-04-25] MEDS: FINASTERIDE 5MG TAB PO SCH (09:10)
[2024-04-25] MEDS: FERROUS GLUCONATE 324 MG TAB PO SCH (09:10)
[2024-04-25] MEDS: OLANZapine 2.5MG TABLET PO SCH (09:10)
[2024-04-25] MEDS: OMEPRAZOLE 20MG CAP PO SCH (09:10)
[2024-04-25] MEDS: allopurinoL 300 MG TAB PO SCH (09:10)
[2024-04-25] MEDS: metFORMIN XR 500MG TAB *GLUCOPHAGE XR PO SCH (09:11)
[2024-04-25] MEDS: ENOXAPARIN 30MG/0.3ML SYRINGE (J1650 PER 10MG) SC SCH (09:12)
[2024-04-25 09:30] LABS: HEMATOCRIT 26.9 % (42.0-52.0); HEMOGLOBIN 8.8 g/dl (13.5-17.5); MEAN CORPUSCULAR HEMOGLOBIN 27.7 pg (27.0-33.0); MEAN CORPUSCULAR HGB CONC 32.7 g/dl (32.0-36.5); MEAN CORPUSCULAR VOLUME 84.6 fl (80.0-96.0); RED BLOOD COUNT 3.18 10^6/uL (4.30-6.10); WHITE BLOOD COUNT 10.1 10^3/uL (4.0-10.0)
[2024-04-25 10:05] LABS: ALBUMIN 3.1 G/DL (3.2-5.2); ALKALINE PHOSPHATASE 76 U/L (40-129); ALT/SGPT 20 U/L (7.0-40); AST/SGOT 11 U/L (<34); BILIRUBIN,TOTAL 0.7 MG/DL (0.3-1.2); BLOOD UREA NITROGEN 23 MG/DL (9-23); CALCIUM LEVEL 8.3 MG/DL (8.3-10.6); CARBON DIOXIDE LEVEL 24 MMOL/L (20-31); CHLORIDE LEVEL 108 MMOL/L (98-107); CREATININE FOR GFR 1.07 MG/DL (0.70-1.30); GLOMERULAR FILTRATION RATE > 60.0 (>35); GLUCOSE, FASTING 111 MG/DL (74-106); POTASSIUM SERUM 4.4 MMOL/L (3.5-5.1); SODIUM LEVEL 140 MMOL/L (136-145); TOTAL PROTEIN 5.9 G/DL (5.7-8.2)
[2024-04-25 10:38] LABS: PLATELET COUNT, AUTOMATED 87 10^3/uL (150-450)
[2024-04-25 12:00] VITALS: BP 125/50; TEMP 97.5; O2SAT 100
[2024-04-25 12:27] LABS: PROCALCITONIN 0.19 ng/ml
[2024-04-25] MEDS: ROSUVASTATIN 10 MG TAB (CRESTOR) PO SCH (17:21)
[2024-04-25 19:25] VITALS: BP 121/48; TEMP 97.5; O2SAT 98
[2024-04-25] MEDS: OLANZapine 5 MG TAB PO SCH (20:17)
[2024-04-25] MEDS: clonazePAM 0.5 MG TAB PO SCH (20:17)
[2024-04-25] MEDS: TAMSULOSIN 0.4 MG CAP PO SCH (20:17)
[2024-04-26 04:10] VITALS: BP 124/52; TEMP 97.5; O2SAT 95
[2024-04-26 08:25] LABS: BASO # 0.1 10^3/uL (0.0-0.2); BASO % 0.5 % (0.0-1.0); EOS # 0.2 10^3/uL (0.0-0.5); EOS % 1.9 % (0.0-3.0); HEMOGLOBIN 9.2 g/dl (13.5-17.5); MEAN CORPUSCULAR HEMOGLOBIN 27.2 pg (27.0-33.0); MEAN CORPUSCULAR HGB CONC 31.7 g/dl (32.0-36.5); MEAN CORPUSCULAR VOLUME 85.8 fl (80.0-96.0); MONO % 28.5 % (2.0-8.0); NEUTROPHILS # 4.2 10^3/uL (1.5-8.5); NEUTROPHILS % 44.9 % (36.0-66.0); RED BLOOD COUNT 3.38 10^6/uL (4.30-6.10); WHITE BLOOD COUNT 9.4 10^3/uL (4.0-10.0)
[2024-04-26 08:27] LABS: MONO # 2.7 10^3/uL (0.0-0.8); PLATELET COUNT, AUTOMATED 97 10^3/uL (150-450)
[2024-04-26 08:33] VITALS: BP 151/56
[2024-04-26 08:52] LABS: BLOOD UREA NITROGEN 20 MG/DL (9-23); CARBON DIOXIDE LEVEL 21 MMOL/L (20-31); CHLORIDE LEVEL 105 MMOL/L (98-107); CREATININE FOR GFR 0.96 MG/DL (0.70-1.30); GLOMERULAR FILTRATION RATE > 60.0 (>35); GLUCOSE, FASTING 183 MG/DL (74-106); POTASSIUM SERUM 4.7 MMOL/L (3.5-5.1); SODIUM LEVEL 142 MMOL/L (136-145)
[2024-04-26 12:00] VITALS: BP 113/52; TEMP 97.7; O2SAT 98
== END 2024-04-26 12:55 | disposition home or self-care (01) ==
LOC: M ED 16:32 → M ED INP 16:33 → M MS5PR 23:57
PROVIDERS: ADMIT Student in an Organized Health Care Education/Training Program; ATTEND Internal Medicine
DX: R53.1 Weakness (principal); N17.9 Acute kidney failure, unspecified; N40.1 Benign prostatic hyperplasia with lower urinary tract symptoms; D72.829 Elevated white blood cell count, unspecified; D64.9 Anemia, unspecified; D69.6 Thrombocytopenia, unspecified; F41.9 Anxiety disorder, unspecified; F39 Unspecified mood [affective] disorder; E78.5 Hyperlipidemia, unspecified; K21.9 Gastro-esophageal reflux disease without esophagitis; E11.9 Type 2 diabetes mellitus without complications; I10 Essential (primary) hypertension; M10.9 Gout, unspecified; Z79.84 Long term (current) use of oral hypoglycemic drugs; Z79.899 Other long term (current) drug therapy
CPT/HCPCS: 36415; 51701; 71046; 76775; 76857; 80048; 80053; 80076; 81001; 82550; 82553; 84145; 84443; 84484; 85025; 85027; 85049; 85055; 86850; 86900; 86901; 87426; 87486; 87581; 87633; 87798; 93005; 96374; 97161; 99285; G0378; G0463; J1650

== ENCOUNTER → 2024-05-02 | Outpatient (CLI) | payer MEDICARE, BC ==
[~2024-05-02] MED LIST changes: +LIDOCAINE 1% MDV 20ML VIAL As Ordered ONE
[2024-05-02 08:20] VITALS: TEMP 97.1
[2024-05-02 09:21] LABS: HEMATOCRIT 29.8 % (42.0-52.0); HEMOGLOBIN 9.7 g/dl (13.5-17.5); MEAN CORPUSCULAR HEMOGLOBIN 28.1 pg (27.0-33.0); MEAN CORPUSCULAR HGB CONC 32.6 g/dl (32.0-36.5); MEAN CORPUSCULAR VOLUME 86.4 fl (80.0-96.0); PLATELET COUNT, AUTOMATED 146 10^3/uL (150-450); RED BLOOD COUNT 3.45 10^6/uL (4.30-6.10); WHITE BLOOD COUNT 15.2 10^3/uL (4.0-10.0)
[2024-05-02 09:35] VITALS: BP 121/57; O2SAT 98
[2024-05-02 09:37] LABS: ATYPICAL LYMPH 2 % (0-5); LYMPHOCYTES 24 % (16-44); METAMYELOCYTES 2 % (0-0); MONOCYTES 13 % (0-5); MYELOCYTES 3 % (0-0); NEUTROPHILS 56 % (28-66); PLATELET CLUMPS SMALL AMT; PLATELET ESTIMATE NORMAL (NORMAL)
[2024-05-02 09:38] LABS: ANISOCYTOSIS 1+; POIKILOCYTOSIS 1+; POLYCHROMASIA 1+
== END ==
LOC: M IRPRO 08:11
PROVIDERS: ATTEND Nurse Practitioner Adult Health
DX: D69.6 Thrombocytopenia, unspecified (principal); D72.821 Monocytosis (symptomatic)

== ENCOUNTER 2024-06-08 10:24 | Emergency (ER) | payer MEDICARE, BC ==
[~2024-06-08] VITALS: Ht 188 cm; Wt 91.7 kg
[~2024-06-08 10:24] MED LIST changes: -LIDOCAINE 1% MDV 20ML VIAL As Ordered ONE
[2024-06-08] MEDS: NS (Normal Saline) 0.9% 1,000 ML IV ONE (10:57)
[2024-06-08 11:03] LABS: HEMATOCRIT 30.2 % (42.0-52.0); HEMOGLOBIN 9.4 g/dl (13.5-17.5); MEAN CORPUSCULAR HEMOGLOBIN 27.5 pg (27.0-33.0); MEAN CORPUSCULAR HGB CONC 31.1 g/dl (32.0-36.5); MEAN CORPUSCULAR VOLUME 88.3 fl (80.0-96.0); PLATELET COUNT, AUTOMATED 108 10^3/uL (150-450); RED BLOOD COUNT 3.42 10^6/uL (4.30-6.10)
[2024-06-08 11:33] LABS: ALBUMIN 3.9 G/DL (3.2-5.2); ALKALINE PHOSPHATASE 91 U/L (40-129); ALT/SGPT 32 U/L (7.0-40); AST/SGOT 14 U/L (<34); BILIRUBIN,TOTAL 0.9 MG/DL (0.3-1.2); BLOOD UREA NITROGEN 25 MG/DL (9-23); CALCIUM LEVEL 9.3 MG/DL (8.3-10.6); CARBON DIOXIDE LEVEL 26 MMOL/L (20-31); CHLORIDE LEVEL 109 MMOL/L (98-107); CREATININE FOR GFR 0.98 MG/DL (0.70-1.30); GLOMERULAR FILTRATION RATE > 60.0 (>35); GLUCOSE, FASTING 99 MG/DL (74-106); MAGNESIUM LEVEL 1.9 MG/DL (1.8-2.4); POTASSIUM SERUM 4.2 MMOL/L (3.5-5.1); SODIUM LEVEL 145 MMOL/L (136-145); TOTAL PROTEIN 6.6 G/DL (5.7-8.2)
[2024-06-08 11:54] LABS: ATYPICAL LYMPH 3 % (0-5); EOSINOPHILS 3 % (0-3); LYMPHOCYTES 15 % (16-44); MONOCYTES 15 % (0-5); NEUTROPHILS 64 % (28-66)
[2024-06-08 11:55] LABS: PLATELET ESTIMATE DECREASED (NORMAL)
[2024-06-08 11:56] LABS: ANISOCYTOSIS 1+
[2024-06-08] MEDS: ACETAMINOPHEN 500 MG TAB PO ONE (12:04)
[2024-06-08 14:20] VITALS: BP 141/63; TEMP 97.3; O2SAT 100
== END 2024-06-08 14:25 | disposition home or self-care (01) ==
LOC: EDBD 10:24 → M ED 10:24
DX: E86.0 Dehydration (principal); R19.7 Diarrhea, unspecified; R00.1 Bradycardia, unspecified; I10 Essential (primary) hypertension; E78.5 Hyperlipidemia, unspecified; E11.9 Type 2 diabetes mellitus without complications; F41.9 Anxiety disorder, unspecified; F32.A Depression, unspecified; Z79.899 Other long term (current) drug therapy; Z79.4 Long term (current) use of insulin; Z79.811 Long term (current) use of aromatase inhibitors; Z86.79 Personal history of other diseases of the circulatory system; Z87.891 Personal history of nicotine dependence

== ENCOUNTER → 2024-07-26 | Outpatient (REF) | payer MEDICARE, BC ==
[2024-07-26 14:26] LABS: HEMATOCRIT 29.9 % (42.0-52.0); HEMOGLOBIN 9.5 g/dl (13.5-17.5); MEAN CORPUSCULAR HEMOGLOBIN 28.2 pg (27.0-33.0); MEAN CORPUSCULAR HGB CONC 31.8 g/dl (32.0-36.5); MEAN CORPUSCULAR VOLUME 88.7 fl (80.0-96.0); RED BLOOD COUNT 3.37 10^6/uL (4.30-6.10); WHITE BLOOD COUNT 5.2 10^3/uL (4.0-10.0)
[2024-07-26 14:33] LABS: PLATELET COUNT, AUTOMATED 75 10^3/uL (150-450)
[2024-07-26 14:48] LABS: ALBUMIN 3.9 G/DL (3.2-5.2); BILIRUBIN,TOTAL 1.2 MG/DL (0.3-1.2); CALCIUM LEVEL 9.3 MG/DL (8.3-10.6); CREATININE FOR GFR 1.02 MG/DL (0.70-1.30); FERRITIN 81.7 NG/ML (10.5-307.3); GLOMERULAR FILTRATION RATE 73.8 (>35); POTASSIUM SERUM 4.7 MMOL/L (3.5-5.1); TOTAL PROTEIN 6.4 G/DL (5.7-8.2)
[2024-07-26 14:59] LABS: ATYPICAL LYMPH 1 % (0-5); BASOPHILS 1 % (0-1); LYMPHOCYTES 28 % (16-44); MONOCYTES 19 % (0-5); NEUTROPHILS 50 % (28-66)
[2024-07-26 15:00] LABS: PLATELET ESTIMATE DECREASED (NORMAL)
== END ==
LOC: M SFHCPLAZ 10:55
PROVIDERS: ATTEND Physician Assistant Medical
DX: D50.9 Iron deficiency anemia, unspecified (principal); R19.7 Diarrhea, unspecified

== ENCOUNTER → 2024-08-01 | Outpatient (REF) | payer MEDICARE, BC | LOC: M SFHCPLAZ 09:59 | PROVIDERS: ATTEND Physician Assistant Medical | DX: D50.9 Iron deficiency anemia, unspecified (principal); R19.7 Diarrhea, unspecified; R42 Dizziness and giddiness; R68.2 Dry mouth, unspecified; R26.89 Other abnormalities of gait and mobility ==

== ENCOUNTER → 2024-08-28 | Outpatient (CLI) | payer MEDICARE, BC ==
[2024-08-28 14:12] LABS: HEMOGLOBIN A1c 8.8 % (4.0-6.0)
[2024-08-28 14:25] LABS: ALBUMIN 4.1 G/DL (3.2-5.2); BILIRUBIN,TOTAL 1.1 MG/DL (0.3-1.2); CALCIUM LEVEL 9.8 MG/DL (8.3-10.6); CHOLESTEROL RISK RATIO 3.49 (<5); CREATININE FOR GFR 0.91 MG/DL (0.70-1.30); GLOMERULAR FILTRATION RATE 84.7 (>35); HDL CHOLESTEROL 25.2 MG/DL (>40); NON-HDL-C 62.8 MG/DL; POTASSIUM SERUM 3.9 MMOL/L (3.5-5.1); TOTAL PROTEIN 6.7 G/DL (5.7-8.2)
== END ==
LOC: M PLALAB 11:51
PROVIDERS: ATTEND Nurse Practitioner Adult Health
DX: E11.9 Type 2 diabetes mellitus without complications (principal); E78.5 Hyperlipidemia, unspecified

== ENCOUNTER → 2024-11-24 | Outpatient (CLI) | payer MEDICARE, BC | LOC: M SOG 11:45 | PROVIDERS: ATTEND Physician Assistant | DX: M17.0 Bilateral primary osteoarthritis of knee (principal) ==